=== PATIENT | male | born 1965 | race Caucasian/White ===

== ENCOUNTER 2019-12-17 10:16 | Outpatient (CLI) | payer OTHER, SELFPAY ==
--- NOTE | ~2019-12-17 | CT_ITS ---
EXAMINATION: CT abdomen pelvis w con DATE: 12/17/2019 10:58 INDICATION: Contusion of the abdominal wall TECHNIQUE: Computed tomography (CT) of the abdomen and pelvis was performed with 100 cc Omnipaque 350 intravenous contrast. Automated exposure control and iterative reconstruction technique were employe d. Exam dose: 1071.12 mGy-cm total exam DLP. COMPARISON: None. FINDINGS: Right lower lobe calcified pulmonary granuloma. No infiltrate or consolidation in the inclu ded lower lung zones. Normal heart size. Coronary artery calcifications. No pericardial or pleural effusion. The liver, gallbladder, bile ducts, spleen, pancreas and pancreatic duct are unremarkable. Indeterminate 1.9 cm mid anterior left renal hypoenhancing mass with mean density attenuation of 48 H ounsfield units. 3 cm exophytic posterior medial lower pole left renal mass with mean density measurement of 39 Hounsf ield units. An approximately 6 mm cortical cysts of the medial mid left kidney is noted. 10.7 mm upper pole right renal hypoenhancing lesion with mean density of 31.4 Hounsfield units 8 mm posterior upper pole cortical right renal hypoenhancing lesion with mean density 41 Hounsfield u nits. Probable 3 mm cortical cyst of the medial mid right kidney. Consider MRI of the kidneys for more definitive evaluation of the renal lesions. There is prostate enlargement and calcifications. There is an approximately 1 cm soft tissue mass pro jecting at the base of the urinary bladder. This may be prostate enlargement. Bladder neoplasm cannot be excluded. Further evaluation is recommended. There is diffuse moderate bladder wall thickening, likely due to prostate enlargement/bladder outlet obstruction. There is atherosclerotic calcification of the abdominal aorta and iliac and femoral arteries. There i s no abdominal aortic aneurysm. No intraperitoneal or retroperitoneal or pelvic mass lesion or adenop athy or ascites is evident. Normal appendix. No bowel obstruction, bowel wall thickening, pneumatosis or intraperitoneal free air . Very small fat-containing umbilical hernia. Diffuse idiopathic skeletal hyperostosis of the lower thoracic spine. No suspicious osteolytic or osteoblastic lesions are noted. IMPRESSION: Multiple bilateral indeterminate hypoenhancing renal lesions, some or all of which might be relatively high attenuation cyst(s). Solid renal mass lesion is not excluded. Consider MRI of the kidneys for more definitive evaluation Prostate enlargement versus bladder mass, base of the urinary bladder; further evaluation is recommen ded Reviewed, dictated and finalized at [facility]. Reviewed, dictated and finalized at location [facility]. IMPRESSION: Multiple bilateral indeterminate hypoenhancing renal lesions, some or all of which might be relatively high attenuation cyst(s). Solid renal mass lesion is not excluded. Consider MRI of the kidneys for more definitive evalua tion Prostate enlargement versus bladder mass, base of the urinary bladder; further evaluation is recommended
[2019-12-17 10:43] LABS: Estimated Glomerular Filt Rate > 60
== END 2019-12-17 10:17 | disposition home or self-care (01) ==
LOC: ANHIMG 10:20
PROVIDERS: PCP Family Medicine; Visit Provider Family Medicine
DX: S30.1XXS Contusion of abdominal wall, sequela (principal); K76.9 Liver disease, unspecified; R93.5 Abnormal findings on diagnostic imaging of other abdominal regions, including retroperitoneum
CPT/HCPCS: 36415; 74177; Q9967

== ENCOUNTER 2020-01-09 07:30 | Outpatient (CLI) | payer OTHER, SELFPAY ==
--- NOTE | ~2020-01-09 | MR_ITS ---
EXAMINATION: MR renal wo con DATE: 01/09/2020 09:32 INDICATION: Bilateral kidney masses. TECHNIQUE: Magnetic resonance imaging (MRI) of the abdomen was performed without intravenous contrast . Sequences included coronal T2-weighted FS FSE, coronal and axial FIESTA FS, coronal LAVA-flex, axia l LAVA, axial T2-weighted FSE, axial T1-weighted dual-echo FSPGR, axial STIR FSE, and axial DWI. COMPARISON: CT abdomen and pelvis 12/17/2019, lumbar spine 09/19/2012 FINDINGS: The liver and spleen are normal. There are gallstones in the gallbladder, which is normal in size. Th e pancreas and adrenal glands are normal. There are simple cysts in the kidneys measuring up to 11 mm on the right. There are 2.1 cm and 3.0 cm masses in left kidney that demonstrate heterogeneous signa l intensity. There are no dilated loops of bowel. There are no pathologically enlarged lymph nodes. T here is no free intraperitoneal fluid. IMPRESSION: 1. 2.1 cm and 3.0 cm masses in left kidney. These findings are most likely hemorrhagic cysts, but brian plasm cannot be excluded without postcontrast imaging. Abdomen CT or MRI without and with contrast is recommended. Reviewed, dictated and finalized at location [facility]. IMPRESSION: 1. 2.1 cm and 3.0 cm masses in left kidney. These findings are most likely hemo rrhagic cysts, but neoplasm cannot be excluded without postcontrast imaging. Ab domen CT or MRI without and with contrast is recommended.
--- NOTE | ~2020-01-09 | MR_ITS ---
EXAMINATION: MR thoracic spine wo con EXAM DATE: 01/09/2020 09:32 INDICATION: Mid back pain. TECHNIQUE: Multi-sequential, multiplanar MR images of the thoracic spine were obtained without contra st. Sagittal T1, T2, T2 fat saturation, axial T2 weighted images reviewed. There is no prior study for comparison. FINDINGS: At the T2-3 level the thoracic spinal cord is being flattened along the anterior aspect of the thecal sac to 3 mm in AP dimension versus normal 5 mm thickness below. No cord edema, this likely a chronic finding from a dural rent or tear. There is mixed signal intensity within the spinal canal including at this level as would be expected for flowing CSF, making mass effect from an posterior a rachnoid cyst unlikely. Spinal cord morphology is otherwise normal. There is no syringohydromyelia. There is mild to moderate mid thoracic disc disease and facet arthropathy without posterior protrusions or neural foraminal st enosis. Central canal patent. The vertebral bodies are aligned in the AP dimension. Paraspinal soft t issue is unremarkable. IMPRESSION: 1. Cord anterior course alteration, flattening at T2-3 level, most likely from dural rent/tear. 2. Mild to moderate thoracic spondylosis. No stenosis. Reviewed, dictated and finalized at location [facility].
== END 2020-01-09 07:31 | disposition home or self-care (01) ==
LOC: ANHIMG 07:32
PROVIDERS: PCP Family Medicine; Visit Provider Family Medicine
DX: N28.89 Other specified disorders of kidney and ureter (principal); M51.34 Other intervertebral disc degeneration, thoracic region; M47.894 Other spondylosis, thoracic region
CPT/HCPCS: 72146; 74181

== ENCOUNTER 2020-02-08 08:15 | Outpatient (CLI) | payer OTHER, SELFPAY ==
--- NOTE | ~2020-02-08 | MR_ITS ---
EXAMINATION: MR lumbar spine wo con DATE: 02/08/2020 09:10 INDICATION: Lumbago. TECHNIQUE: Magnetic resonance imaging (MRI) of the lumbar spine was performed without intravenous con trast. Sequences included sagittal T2-weighted FSE, sagittal T2-weighted FS FSE, sagittal T1-weighted FSE, and axial T2-weighted FSE. COMPARISON: Lumbar spine MRI 09/19/2012 FINDINGS: There is 10 degrees dextroscoliosis of lumbar spine. There are Schmorl's nodes at most leve ls. There is severely decreased disc height at L2-L3, mildly decreased disc height at L4-L5, and mode rately decreased disc height at L5-S1. There is a 3.0 cm cyst in left kidney. The following disc leve ls are specifically discussed: L1-L2: The disc does not extend beyond the endplate margin. There is mild bilateral facet joint osteo arthritis. There is no neural foraminal stenosis. There is no central canal stenosis. L2-L3: The disc is bulging and has an annular fissure. There is mild bilateral facet joint osteoarthr itis. There is mild right and moderate left neural foraminal stenosis. There is mild central canal st enosis. L3-L4: The disc is bulging and has an annular fissure. There is moderate right and mild left facet yisel int osteoarthritis. There is no neural foraminal stenosis. There is mild central canal stenosis. L4-L5: The disc is bulging and has an annular fissure. There is mild bilateral facet joint osteoarthr itis. There is mild right neural foraminal stenosis. There is no central canal stenosis. L5-S1: The disc is bulging. There is severe right and moderate left facet joint osteoarthritis. There is moderate right and mild left neural foraminal stenosis. There is mild central canal stenosis. IMPRESSION: 1. Severe lumbar spondylosis, worsened from 09/19/2012. 2. Lumbar dextroscoliosis. Reviewed, dictated and finalized at location [facility].
== END 2020-02-08 08:16 | disposition home or self-care (01) ==
PROVIDERS: PCP Family Medicine; Visit Provider Nurse Practitioner Family
DX: M47.896 Other spondylosis, lumbar region (principal)
CPT/HCPCS: 72148

== ENCOUNTER 2020-03-02 07:35 | Outpatient (CLI) | payer OTHER, SELFPAY ==
--- NOTE | ~2020-03-02 | MR_ITS ---
EXAMINATION: MR abdomen wo/w con DATE: 03/02/2020 08:57 INDICATION: Renal cyst. TECHNIQUE: Magnetic resonance imaging (MRI) of the abdomen was performed without and with 20 mL Multi Hugo intravenous contrast. Sequences included coronal T2-weighted FS FSE, coronal and axial FIESTA F S, coronal LAVA-flex, axial LAVA, axial T2-weighted FSE, axial T1-weighted dual-echo FSPGR, axial STI R FSE, and axial DWI. Postcontrast sequences included coronal LAVA-flex and a time course of axial LA VA. COMPARISON: Abdomen MRI 01/09/2020, CT abdomen and pelvis 12/17/2019 FINDINGS: The liver is normal. There are gallstones in the gallbladder, which is normal in size. The spleen, pa ncreas, and adrenal glands are normal. There are nonenhancing cysts in the kidneys measuring up to 2. 2 cm on the left. There is a nonenhancing 3.0 cm hemorrhagic cyst in left kidney. There are no dilate d loops of bowel. There are no pathologically enlarged lymph nodes. There is no free intraperitoneal fluid. IMPRESSION: 1. Benign cysts in the kidneys. Reviewed, dictated and finalized at location A.
[2020-03-02 08:15] LABS: Estimated Glomerular Filt Rate > 60
== END 2020-03-02 07:36 | disposition home or self-care (01) ==
LOC: ANHIMG 07:40
PROVIDERS: PCP Family Medicine; Visit Provider Urology
DX: N28.1 Cyst of kidney, acquired (principal)
CPT/HCPCS: 36415; 74183; A9577

== ENCOUNTER 2020-04-25 01:28 | Outpatient (CLI) | payer OTHER, SELFPAY ==
[2020-04-25 19:30] LABS: SARS-CoV-2 RNA PCR Negative
== END 2020-04-25 01:29 | disposition home or self-care (01) ==
LOC: ANHCOVIDDT 01:29
PROVIDERS: PCP Family Medicine; Visit Provider Internal Medicine Gastroenterology
DX: Z01.812 Encounter for preprocedural laboratory examination (principal); Z11.59 Encounter for screening for other viral diseases
CPT/HCPCS: 87635; C9803; U0003

== ENCOUNTER 2020-04-28 00:55 | Day surgery (SDC) | payer OTHER, SELFPAY ==
[2020-04-20 09:30] VITALS: BMI 33.8
--- NOTE | 2020-04-20 09:54 | PC.NURSE ---
PATIENT STATES HE WAS INSTRUCTED BY DR. KOWALSKI OFFICE TO HOLD PLAVIX AND NAPROXEN FOR FIVE DAYS PRIOR TO COLONOSCOPY.
[2020-04-28 08:01] VITALS: BP 151/100; PULSE 74; RESP 17; TEMP 36.4; O2SAT 98; BMI 32.2
[2020-04-28] MEDS: LACTATED RINGERS 1,000 ML 150 ML IV CONT (08:07)
[2020-04-28 08:18] LABS: Glucose Point of Care 168 (65-105)
--- NOTE | 2020-04-28 08:52 | WPDANESEPPF ---
Anes - Initial Pre Proc Eval Procedure: Operation Date: 04/28/20 09:15 Proposed Procedures p Screening Colonoscopy - Froylan Sinha MD Date/Time: 04/28/20 08:52 Surgeon: rFoylan Sinha MD Pre Op Diagnosis: Neoplasm Screening Patient Data Age: 55 Gender: M Height: 5 ft 11 in Weight: 104.8 kg Last Vital Signs Temp 97.5 F L 04/28/20 08:01 Pulse 74 04/28/20 08:01 Resp 17 04/28/20 08:01 BP 151/100 H 04/28/20 08:01 Pulse Ox 98 04/28/20 08:01 Allergies Allergy/AdvReac Type Severity Reaction Status Date / Time No Known Allergies Allergy Verified 04/28/20 08:18 Home Medications Medication Instructions Recorded Confirmed Type pravastatin 10 mg tablet 10 mg PO DAILY #90 tablet 08/16/19 04/28/20 Rx amlodipine 10 mg tablet 10 mg PO DAILY #90 tablet 08/19/19 04/28/20 Rx clonidine HCl 0.1 mg tablet 0.1 mg PO DAILY #90 tablet 08/23/19 04/28/20 Rx clopidogrel 75 mg tablet 75 mg PO DAILY #30 tablet 11/01/19 04/28/20 Rx metoprolol tartrate 100 mg tablet 100 mg PO Q12H #60 tablet 11/01/19 04/28/20 Rx potassium chloride 20 mEq 20 meq PO DAILY #30 tablet 11/01/19 04/28/20 Rx tablet,extended release(part/cryst) aspirin 81 mg tablet,delayed 81 mg PO DAILY 11/11/19 04/28/20 History release empagliflozin 25 mg tablet 25 mg PO DAILY #90 tablet 12/17/19 04/28/20 Rx valsartan 320 1 tablet PO DAILY #90 tablet 01/14/20 04/28/20 Rx mg-hydrochlorothiazide 25 mg tablet metformin 1,000 mg tablet 1,000 mg PO BID #180 tablet 02/03/20 04/28/20 Rx naproxen sodium 550 mg tablet 550 mg PO BID PRN #180 tablet 02/03/20 04/28/20 Rx blood sugar diagnostic #300 each 04/13/20 Rx ckzyvaji-vdu-djelf-vit K-lycop 1 tablet PO DAILY 04/20/20 04/28/20 History [Men's 50 Plus Multivitamin] Laboratory Tests 04/28/20 08:14 POC Capillary Glucose 168 mg/dl H mg/dl (65-105) Patient hx anesthesia problems: none Family hx anesthesia problems: none [facility] Past Medical History Medical History (Updated 03/20/20 @ 11:09 by Froylan Sinha MD) Bilateral renal masses Bladder wall thickening BPH (benign prostatic hyperplasia) Degenerative lumbar disc Ganglion, right hand History of CVA (cerebrovascular accident) Screening for colorectal cancer Thoracic degenerative disc disease Traumatic ecchymosis of abdominal wall Social History Social History Smoking status: Never smoker Alcohol intake: current Anes - Eval Final PreProcedure Day of Procedure 04/28/20 08:52 Patient weight: obese Heart: regular rate and rhythm Lungs: clear to auscultation Airway: Mallampati scale class III Last oral intake: >/= 8 hours ASA classification: III Emergent: no Anesthetic plan: proceed Anesthesia type and monitoring: general GIVS and standard monitoring Informed Consent: The patient's anesthetic plan and its attendant risks and benefits were discussed with the patient/family/POA. Questions were solicited and answers provided to the satisfaction of the patient/family/POA.
--- NOTE | 2020-04-28 09:21 | PM.HPGS ---
History of Present Illness History of Present Illness Consent: Risks, benefits, and alternatives have been discussed and questions answered. Patient agrees to proceed with procedure. Chief complaint: Neoplasm Screening Narrative: Erlin Sifuentes Jr. is a 55 year old male here for first screening colonoscopy Review of Systems Constitutional: Constitutional: Denies headache(s) and Denies weakness Eyes: Eyes: Denies blurry vision ENT: Reports Normal hearing present, Denies headache(s) and Denies neck pain Cardiovascular: Cardiovascular: Denies chest pain and Denies dyspnea Respiratory: Respiratory: Denies dyspnea Gastrointestinal: Gastrointestinal: Reports no additional gastrointestinal complaints Genitourinary: Genitourinary: Denies dysuria Musculoskeletal: Musculoskeletal: Denies neck pain Integumentary/Breasts: Skin/Breast: Denies dry skin Neurologic: Reports Normal hearing present, Denies headache(s) and Denies weakness Psychiatric: Psychiatric: Denies anxiety Endocrine: Endocrine: Denies change in body appearance Hematologic/Lymphatic: Hematologic/Lymphatic: Denies easy bleeding Allergic/Immunologic: Allergic/Immunologic: Denies urticaria PMF Past Medical History Medical History (Updated 03/20/20 @ 11:09 by Froylan Sinha MD) Bilateral renal masses Bladder wall thickening BPH (benign prostatic hyperplasia) Degenerative lumbar disc Ganglion, right hand History of CVA (cerebrovascular accident) Screening for colorectal cancer Thoracic degenerative disc disease Traumatic ecchymosis of abdominal wall Social History Social History Smoking status: Never smoker Alcohol intake: current Meds Home Medications and Allergies Home Medications Medication Instructions Recorded Confirmed Type pravastatin 10 mg tablet 10 mg PO DAILY #90 tablet 08/16/19 04/28/20 Rx amlodipine 10 mg tablet 10 mg PO DAILY #90 tablet 08/19/19 04/28/20 Rx clonidine HCl 0.1 mg tablet 0.1 mg PO DAILY #90 tablet 08/23/19 04/28/20 Rx clopidogrel 75 mg tablet 75 mg PO DAILY #30 tablet 11/01/19 04/28/20 Rx metoprolol tartrate 100 mg tablet 100 mg PO Q12H #60 tablet 11/01/19 04/28/20 Rx potassium chloride 20 mEq 20 meq PO DAILY #30 tablet 11/01/19 04/28/20 Rx tablet,extended release(part/cryst) aspirin 81 mg tablet,delayed 81 mg PO DAILY 11/11/19 04/28/20 History release empagliflozin 25 mg tablet 25 mg PO DAILY #90 tablet 12/17/19 04/28/20 Rx valsartan 320 1 tablet PO DAILY #90 tablet 01/14/20 04/28/20 Rx mg-hydrochlorothiazide 25 mg tablet metformin 1,000 mg tablet 1,000 mg PO BID #180 tablet 02/03/20 04/28/20 Rx naproxen sodium 550 mg tablet 550 mg PO BID PRN #180 tablet 02/03/20 04/28/20 Rx blood sugar diagnostic #300 each 04/13/20 Rx nscjxbqu-els-zeiax-vit K-lycop 1 tablet PO DAILY 04/20/20 04/28/20 History [Men's 50 Plus Multivitamin] Allergies Allergy/AdvReac Type Severity Reaction Status Date / Time No Known Allergies Allergy Verified 04/28/20 08:18 Vital Signs Vital Signs - 24 hr 04/28/20 08:01 Temperature 97.5 F L Pulse Rate 74 Respiratory Rate 17 Blood Pressure 151/100 H Pulse Oximetry 98 Exam Const: General: comfortable and no acute distress HENMT: General nose exam: Normal nares present Eyes: General: appearance normal, both eyes and all related structures Neck: Neck: no JVD Resp: Auscultation: clear to auscultation bilaterally Cardio: Rate: regular rate Rhythm: regular rhythm GI: Inspection: non-distended GI Palp: Yes Soft to palpation Skin: General skin exam: normal color Neuro: General: gait normal Speech: normal speech Extrem: General: normal to inspection Psych: Mental Status: mental status grossly normal Assessment and Plan Assessment and plan (1) Screening for colorectal cancer: Code(s): Z12.11 - Encounter for screening for malignant neoplasm of colon; Z12.12 - Encounte
[2020-04-28 09:58] VITALS: BP 108/74; PULSE 72; RESP 18; O2SAT 97
[2020-04-28 10:08] VITALS: BP 116/72; PULSE 68; RESP 18; O2SAT 98
[2020-04-28 10:18] VITALS: BP 123/81; PULSE 65; RESP 18; O2SAT 98
== END 2020-04-28 10:31 | disposition home or self-care (01) ==
PROVIDERS: PCP Family Medicine; Visit Provider Internal Medicine Gastroenterology
PROC: 0DJD8ZZ Inspection of Lower Intestinal Tract, Via Natural or Artificial Opening Endoscopic (ICD-10-PCS; CPT 45378; principal; 2020-04-28 09:15)
DX: Z12.11 Encounter for screening for malignant neoplasm of colon (principal); D12.3 Benign neoplasm of transverse colon; K64.8 Other hemorrhoids; Z86.73 Personal history of transient ischemic attack (TIA), and cerebral infarction without residual deficits; Z79.82 Long term (current) use of aspirin; Z79.899 Other long term (current) drug therapy
CPT/HCPCS: 45385; 88305; J2001; J2704; J7120

== ENCOUNTER 2021-02-01 09:52 | Outpatient (CLI) | payer OTHER, SELFPAY ==
--- NOTE | ~2021-02-01 | US_ITS ---
EXAMINATION: US abdomen complete DATE: 02/01/2021 10:33 INDICATION: Calculus of gallbladder without cholecystitis without obstruction. TECHNIQUE: Multiple grayscale and Doppler ultrasound images of the abdomen were obtained. COMPARISON: Abdomen MRI 03/02/2020 FINDINGS: The pancreas is obscured by bowel gas. The liver is normal without focal lesion. There is n ormal flow in main portal vein. The gallbladder is distended and contains gallstones. No gallbladder wall thickening or sonographic Michael sign. The common duct is normal and measures 4 mm. The kidneys are normal in size. There is a 3.2 cm cyst in left kidney. The spleen is normal in size. Abdominal ao rta is normal in caliber. The inferior vena cava is normal. IMPRESSION: 1. Cholelithiasis. Gallbladder distention may be secondary to fasting. No gallbladder wall thickening or sonographic Michael sign to suggest acute cholecystitis. Reviewed, dictated and finalized at location A. IMPRESSION: 1. Cholelithiasis. Gallbladder distention may be secondary to fasting. No gallb ladder wall thickening or sonographic Michael sign to suggest acute cholecystiti s.
[2021-02-01 10:38] LABS: Basophils Absolute Auto 0.1 K/mm3 (0.0-0.1); Basophils Percent Auto 0.8 % (0.2-1.2); Eosinophils Absolute Auto 0.2 K/mm3 (0-0.3); Eosinophils Percent Auto 2.9 % (0-4.4); Hematocrit 44.4 % (42.0-52.0); Hemoglobin 14.7 g/dL (14.0-18.0); Immature Granulocyte Absolute 0.02 K/mm3 (0.00-0.031); Immature Granulocyte Percent A 0.3 % (0-0.5); Lymphocytes Percent Auto 38.7 % (18.3-44.2); Mean Corpuscular HGB Conc 33.1 g/dl (32-36); Mean Corpuscular Hemoglobin 28.4 pg (26-34); Mean Corpuscular Volume 85.9 fl (80-100); Mean Platelet Volume 9.2 fl (7.4-10.4); Monocytes Absolute Auto 0.5 K/mm3 (0.1-0.6); Monocytes Percent Auto 9.1 % (2.6-8.5); Neutrophils Absolute Auto 2.9 K/mm3 (1.3-6.7); Neutrophils Percent Auto 48.2 % (45.5-73.1); Platelet Count Result 221 k/mm3 (150-375); Red Blood Count 5.17 M/mm3 (4.6-6.20); Red Cell Distribution Width 12.2 % (11.5-14.5); White Blood Count 5.9 K/mm3 (4.5-10.0)
[2021-02-01 10:49] LABS: Alanine Aminotransferase 42 U/L (4-50); Alkaline Phosphatase 82 U/L (38-126); Anion Gap 8 mmol/L (8-16); Aspartate Amino Transferase 31 U/L (17-59); Bilirubin,Total 0.3 mg/dL (0.2-1.3); Blood Urea Nitrogen 13 mg/dL (9-20); Carbon Dioxide 31 mmol/L (22-30); Chloride 101 mmol/L (98-107); Estimated Glomerular Filt Rate > 60; Glucose 140 mg/dL (75-110); Potassium 4.1 mmol/L (3.4-5.0); Sodium 140 mmol/L (137-145)
== END 2021-02-01 09:53 | disposition home or self-care (01) ==
LOC: ANHIMG 09:53
PROVIDERS: PCP Family Medicine; Visit Provider Family Medicine
DX: K80.20 Calculus of gallbladder without cholecystitis without obstruction (principal); K58.0 Irritable bowel syndrome with diarrhea
CPT/HCPCS: 36415; 76700; 80053; 85025

== ENCOUNTER 2021-09-01 09:26 | Outpatient (CLI) | payer OTHER, SELFPAY ==
--- NOTE | 2021-09-01 09:34 | ECG_ITS ---
Measurements Intervals [place] Rate: 64 P: 48 WV: 186 QRS: 14 QRSD: 96 T: 3 QT: 425 QTc: 441 Interpretive Statements SINUS RHYTHM BORDERLINE ST-T WAVE ABNORMALITY- INFERIOR LEADS BASELINE ARTIFACT- I, II, III BORDERLINE ECG Electronically Signed On 09-01-2021 9:59:09 [employer] by Timbo Larson D.O.
[2021-09-01 10:28] LABS: Anion Gap 11 mmol/L (8-16); Blood Urea Nitrogen 11 mg/dL (9-20); Calcium 8.7 mg/dL (8.4-10.2); Carbon Dioxide 26 mmol/L (22-30); Chloride 101 mmol/L (98-107); Estimated Glomerular Filt Rate > 60; Glucose 228 mg/dL (65-110); Potassium 3.6 mmol/L (3.4-5.0); Sodium 138 mmol/L (137-145)
== END 2021-09-01 09:27 | disposition home or self-care (01) ==
LOC: ANHSURGERY 09:30
PROVIDERS: Anesthesiology; PCP Family Medicine; Visit Provider Otolaryngology
DX: E11.9 Type 2 diabetes mellitus without complications (principal); E78.5 Hyperlipidemia, unspecified; Z79.899 Other long term (current) drug therapy; I10 Essential (primary) hypertension; Z01.818 Encounter for other preprocedural examination; R94.31 Abnormal electrocardiogram [ECG] [EKG]
CPT/HCPCS: 36415; 80048; 93005

== ENCOUNTER 2021-09-07 00:12 | Day surgery (SDC) | payer OTHER, SELFPAY ==
[2021-08-31 12:23] VITALS: BMI 33.5
--- NOTE | 2021-08-31 12:39 | PC.NURSE ---
Report to the Outpatient Waiting Room, entrance under the green pavilion located off [facility], at time 7:45 on date 09/07/21. OR Time: 9:45. - You will be asked a series of questions to screen for COVID 19 for your protection. - A mask is required within the hospital. - No visitors are allowed at this time. Patient visitors will be guided where to wait when not with patient. Preoperative COVID Testing Requirements: TO BRING COPY OF COVID CARD No COVID Test needed if: (proof is required; if not received patient will have Rapid Test prior to entry) - Patient has received COVID Vaccine at least 14 days prior to procedure date or - Patient has positive COVID test result within last 90 days of surgery date. COVID Test needed if above criteria is not met If not COVID vaccinated a COVID test must be conducted within 72 hours of surgery and patient is asked to isolate self from time of testing until procedure. You will go to the [facility] for your COVID testing. The [facility] is located at the corner of [address] [facility]. You will only be called if COVID results are positive and your surgeon may reschedule your elective surgery date. Patients may have clear liquids (water, carbonated beverages, clear teas, apple juice) until 3 hours prior to surgery (6:45) with a maximum of 20 ounces. - No food from midnight until time of surgery Take the following medications with a SIP of water the morning of surgery: AMLODIPINE, CARVEDILOL, CLONIDINE Medications to discontinue per physician: VITAMINS/SUPPLEMENTS Date to take last dose: 09/03/21 STOP ASPIRIN AND NAPROXEN PER DR. RIOJAS (LAST DOSE 09/01/21) Please no make-up, nail kyrgyz, hairspray, perfume, deodorant, or body powder the day of surgery. No jewelry (including any body piercings) or valuables the day of surgery, leave them at home. Please take a shower or bath the night before, or the morning of, surgery with an antibacterial soap. Wear comfortable, loose fitting clothing. - Jewelry must be removed prior to entering the operating room. Rings and piercings that are not removed may be cut off. - The hospital will not accept responsibility for valuables. - Please leave all valuables, including medications, at home the day of surgery. If you are going home after surgery, a licensed residential driver must drive you home. - NO public transportation without another adult. - We recommend that an adult stay with you for 24 hours following discharge. - We also recommend that you do not drive, make important decision, drink alcoholic beverages, or take any drugs that were not prescribed by your health care provider for at least 24 hours after your discharge time. Follow any additional instructions given to you from your surgeon. Telephone instructions given to WINDY QUIROZ and asked if any additional questions and then verbalized understanding. Patient advised to call surgeon office or pre surgery nurse liaison [phone] if any additional questions.
--- NOTE | 2021-09-06 06:33 | PM.HPGS ---
History of Present Illness History of Present Illness Consent: Risks, benefits, and alternatives have been discussed and questions answered. Patient agrees to proceed with procedure. Chief complaint: tongue lesion Narrative: Erlin Sifuentes Jr. is a 56 year old male with a lesion of the tongue that is getting larger it is about 2.5 cm at this point Review of Systems Review of Systems: All systems reviewed & are unremarkable except as noted in HPI and below PMFSH Past Medical History Medical History Adenomatous colon polyp Bilateral renal masses Bladder wall thickening BMI 32.0-32.9,adult BMI 33.0-33.9,adult BPH (benign prostatic hyperplasia) Change in stool caliber Cholelithiasis Degenerative lumbar disc Diabetes mellitus type 2, noninsulin dependent Diabetes type 2, controlled Essential hypertension Fecal urgency Ganglion, right hand History of CVA (cerebrovascular accident) Irritable bowel syndrome with diarrhea Screening for colorectal cancer Screening for prostate cancer Thoracic degenerative disc disease Traumatic ecchymosis of abdominal wall Family History Family History Father Hypertension Family history of diabetes mellitus in first degree relative Family history of lung cancer Family history of coronary artery disease Family history of cardiovascular disease Mother Hypertension Family history of malignant neoplasm Other Cerebrovascular accident Diabetes mellitus Social History Social History Smoking status: Never smoker Alcohol intake: current Substance use: never Substance use type: does not use Living arrangements: with family Spiritual care concerns: No Meds Home Medications and Allergies Home Medications Medication Instructions Recorded Confirmed Type aspirin 81 mg tablet,delayed 81 mg PO DAILY 11/11/19 08/31/21 History release pxjxmhao-bng-mgagh-vit K-lycop 1 tablet PO DAILY 04/20/20 08/31/21 History [Men's 50 Plus Multivitamin] diphenoxylate-atropine 2.5 1 tablet PO TID PRN #60 tablet 10/01/20 08/31/21 Rx mg-0.025 mg tablet amlodipine 10 mg tablet 10 mg PO DAILY #90 tablet 10/26/20 08/31/21 Rx clonidine HCl 0.1 mg tablet 0.1 mg PO DAILY #90 tablet 10/26/20 08/31/21 Rx valsartan 320 1 tablet PO DAILY #90 tablet 10/26/20 08/31/21 Rx mg-hydrochlorothiazide 25 mg tablet potassium chloride 20 mEq See Rx Instructions .ROUTE 04/20/21 08/31/21 Rx tablet,extended release(part/cryst) .COMPLEX #90 tablet empagliflozin 25 mg tablet 25 mg PO DAILY #90 tablet 06/15/21 08/31/21 Rx carvedilol 12.5 mg tablet See Rx Instructions PO Q12H #360 07/20/21 08/31/21 Rx tablet metformin 500 mg tablet,extended 2,000 mg PO DAILY #360 tablet 07/20/21 08/31/21 Rx release 24 hr blood sugar diagnostic See Rx Instructions .ROUTE 07/29/21 Rx .COMPLEX #300 strip naproxen sodium 550 mg tablet See Rx Instructions .ROUTE 07/29/21 08/31/21 Rx .COMPLEX #180 tablet pravastatin 10 mg tablet See Rx Instructions .ROUTE 07/29/21 08/31/21 Rx .COMPLEX #90 tablet Allergies Allergy/AdvReac Type Severity Reaction Status Date / Time No Known Allergies Allergy Verified 08/31/21 12:17 Exam Narrative: chest clear heart without murmurs abdomen soft extremities -2.5 cm left-sided tongue lesion Assessment and Plan Additional Plan plan removal tongue lesion left
--- NOTE | 2021-09-06 13:51 | WPDANESEPPF ---
Anes - Initial Pre Proc Eval Procedure: Operation Date: 09/07/21 09:45 Proposed Procedures p Excision Anterior Tongue Lesion - Cristobal Spaulding MD Date/Time: 09/06/21 13:51 Surgeon: Cristobal Spaulding MD Pre Op Diagnosis: tongue lesion Patient Data Age: 56 Gender: M Height: 1.8 m Weight: 108.86 kg Allergies Allergy/AdvReac Type Severity Reaction Status Date / Time No Known Allergies Allergy Verified 09/07/21 08:43 Home Medications Medication Instructions Recorded Confirmed Type aspirin 81 mg tablet,delayed 81 mg PO DAILY 11/11/19 09/07/21 History release znbwjxhb-tsz-onbhe-vit K-lycop 1 tablet PO DAILY 04/20/20 09/07/21 History [Men's 50 Plus Multivitamin] diphenoxylate-atropine 2.5 1 tablet PO TID PRN #60 tablet 10/01/20 08/31/21 Rx mg-0.025 mg tablet amlodipine 10 mg tablet 10 mg PO DAILY #90 tablet 10/26/20 09/07/21 Rx clonidine HCl 0.1 mg tablet 0.1 mg PO DAILY #90 tablet 10/26/20 09/07/21 Rx valsartan 320 1 tablet PO DAILY #90 tablet 10/26/20 09/07/21 Rx mg-hydrochlorothiazide 25 mg tablet empagliflozin 25 mg tablet 25 mg PO DAILY #90 tablet 06/15/21 09/07/21 Rx metformin 500 mg tablet,extended 2,000 mg PO DAILY #360 tablet 07/20/21 09/07/21 Rx release 24 hr blood sugar diagnostic See Rx Instructions .ROUTE 07/29/21 Rx .COMPLEX #300 strip carvedilol 25 mg PO Q12H 09/07/21 09/07/21 History naproxen sodium 550 mg PO DAILY 09/07/21 09/07/21 History potassium chloride [Klor-Con M20] 20 meq PO DAILY 09/07/21 09/07/21 History pravastatin 10 mg PO DAILY 09/07/21 09/07/21 History Patient hx anesthesia problems: none Family hx anesthesia problems: none Results Review: All pre-operative results and documents have been reviewed as part of the pre-operative evaluation. [facility] Past Medical History Medical History Adenomatous colon polyp Bilateral renal masses Bladder wall thickening BMI 32.0-32.9,adult BMI 33.0-33.9,adult BPH (benign prostatic hyperplasia) Change in stool caliber Cholelithiasis Degenerative lumbar disc Diabetes mellitus type 2, noninsulin dependent Diabetes type 2, controlled Essential hypertension Fecal urgency Ganglion, right hand History of CVA (cerebrovascular accident) Irritable bowel syndrome with diarrhea Screening for colorectal cancer Screening for prostate cancer Thoracic degenerative disc disease Traumatic ecchymosis of abdominal wall Family History Family History Father Hypertension Family history of diabetes mellitus in first degree relative Family history of lung cancer Family history of coronary artery disease Family history of cardiovascular disease Mother Hypertension Family history of malignant neoplasm Other Cerebrovascular accident Diabetes mellitus Social History Social History Smoking status: Never smoker Alcohol intake: current Substance use: never Substance use type: does not use Living arrangements: with family Spiritual care concerns: No Anes - Eval Final PreProcedure Day of Procedure 09/06/21 13:51 Patient weight: obese Heart: regular rate and rhythm Lungs: clear to auscultation and normal air movement Airway: Mallampati scale class II Neurological: alert and oriented Last oral intake: >/= 8 hours ASA classification: III Emergent: no Anesthetic plan: proceed Anesthesia type and monitoring: general ETT and standard monitoring Results Review: All pre-operative results and documents have been reviewed as part of the pre-operative evaluation. Informed Consent: The patient's anesthetic plan and its attendant risks and benefits were discussed with the patient/family/POA. Questions were solicited and answers provided to the satisfaction of the patient/family/POA.
[2021-09-07] VITALS (7 sets, daily range): BP systolic 93–155; BP diastolic 55–96; PULSE 71–92; RESP 14–20; TEMP 36.2–36.3; O2SAT 92–100
--- NOTE | 2021-09-07 05:11 | WPDHPUPDATE1 ---
History and Physical Update Update Date/Time: 09/07/21 05:11 History and Physical has been reviewed, including an updated exam of the patient. There are NO changes in the patient's condition. Risks, benefits, and alternatives have been discussed and questions answered. Patient agrees to proceed with procedure.
[2021-09-07] MEDS: LACTATED RINGERS 1,000 ML 30 ML IV CONT ×2 (08:50→10:09)
[2021-09-07 09:01] LABS: Glucose Point of Care 159 mg/dl (65-105)
--- NOTE | 2021-09-07 10:07 | W.PM.PROC2 ---
Procedure Note - Detailed Date of Procedure 09/07/21 Pre-op Diagnosis tongue lesion Post-op Diagnosis same Procedure Performed Excision 3 cm lateral border of tongue lesion Surgeon Cristobal Spaulding MD Description of Procedure Patient was induced general anesthesia the tongue was grasped retracted anteriorly a 3 cm lesion was elliptically excised with electrocautery at 15 hemostasis was obtained electrocautery and then closed with 3-0 and 2-0 Vicryl sent for frozen section examination
[2021-09-07 10:16] LABS: Glucose Point of Care 198 mg/dl (65-105)
[2021-09-07] MEDS: fentaNYL CITRATE INJ (*CRX) 100 MCG/2 ML VIAL 25 MCG IV PUSH ×2 (10:37→10:46)
--- NOTE | 2021-09-07 10:51 | W.PM.PROC2 ---
Procedure Note - Detailed Date of Procedure 09/07/21 Pre-op Diagnosis tongue lesion Post-op Diagnosis same Surgeon Cristobal Spaulding MD
[2021-09-07] MEDS: oxyCODONE HCL (*CRX) 5 MG TAB IR PO (11:40)
== END 2021-09-07 12:00 | disposition home or self-care (01) ==
PROVIDERS: PCP Family Medicine; Visit Provider Otolaryngology
PROC: (CPT 41112; principal; 2021-09-07 09:45)
DX: C02.1 Malignant neoplasm of border of tongue (principal); E11.9 Type 2 diabetes mellitus without complications; I10 Essential (primary) hypertension; N40.0 Benign prostatic hyperplasia without lower urinary tract symptoms; Z86.73 Personal history of transient ischemic attack (TIA), and cerebral infarction without residual deficits; K58.0 Irritable bowel syndrome with diarrhea; E66.9 Obesity, unspecified; Z68.32 Body mass index [BMI] 32.0-32.9, adult; Z79.82 Long term (current) use of aspirin; Z79.84 Long term (current) use of oral hypoglycemic drugs
CPT/HCPCS: 41112; 36415; 80048; 82948; 88305; 88331; 93005; A9270; J0330; J1100; J2405; J2704; J3010; J7120

== ENCOUNTER 2021-09-13 22:48 | Emergency (ER) | payer OTHER, SELFPAY ==
[2021-09-13 22:50] VITALS: BP 152/89; PULSE 87; RESP 16; TEMP 36.3; O2SAT 100
--- NOTE | 2021-09-13 23:57 | PC.NURSE ---
Pt reported to intake nurse and said that it has stopped bleeding and i have an appointment in the morning, so i am going to go ahead and leave.
--- NOTE | 2021-09-13 23:59 | PC.NURSE ---
pt back to intake desk. Pt reports as i started walking out the door, i spit more blood up, so i am going to go ahead and stay now.
[2021-09-14] MEDS: CELLULOSE OXIDIZED 2 x 14 INCH 1 PKT XX (00:46)
--- NOTE | 2021-09-14 00:51 | ED.DENTAL ---
HPI - Dental/Oral General Chief complaint: Dental/Oral Stated complaint: Bleeding to left side of tongue post biopsy Time Seen by Provider: 09/14/21 00:32 Source: patient Mode of arrival: ambulatory Limitations: no limitations History of Present Illness HPI Narrative: 56-year-old with a history of CVA had a biopsy a week ago here with the complaints of bleeding from the biopsy site. Patient states that he initially had quite a bit of blood however by the time he came to the ER it has much subsided. He denies biting into it. Scheduled to see Dr. Spaulding in the morning Related Data Home Medications Medication Instructions Recorded Confirmed aspirin 81 mg tablet,delayed 81 mg PO DAILY 11/11/19 09/13/21 release Men's 50 Plus Multivitamin 1 tablet PO DAILY 04/20/20 09/13/21 carvedilol 25 mg PO Q12H 09/07/21 09/13/21 naproxen sodium 550 mg PO DAILY 09/07/21 09/13/21 potassium chloride [Klor-Con M20] 20 meq PO DAILY 09/07/21 09/13/21 pravastatin 10 mg PO DAILY 09/07/21 09/13/21 Allergies Allergy/AdvReac Type Severity Reaction Status Date / Time No Known Allergies Allergy Verified 09/13/21 22:53 Review of Systems Review of Systems: All systems reviewed & are unremarkable except as noted in HPI and below Constitutional: Constitutional: Reports no additional constitutional complaints Eyes: Eyes: Reports no additional eye complaints ENT: Reports as per HPI Cardiovascular: Cardiovascular: Reports no additional cardiovascular complaints Respiratory: Respiratory: Reports no additional respiratory complaints Gastrointestinal: Gastrointestinal: Reports no additional gastrointestinal complaints [facility] Past Medical History Medical History Adenomatous colon polyp Bilateral renal masses Bladder wall thickening BMI 32.0-32.9,adult BMI 33.0-33.9,adult BPH (benign prostatic hyperplasia) Change in stool caliber Cholelithiasis Degenerative lumbar disc Diabetes mellitus type 2, noninsulin dependent Diabetes type 2, controlled Essential hypertension Fecal urgency Ganglion, right hand History of CVA (cerebrovascular accident) Irritable bowel syndrome with diarrhea Screening for colorectal cancer Screening for prostate cancer Squamous cell cancer of tongue Thoracic degenerative disc disease Traumatic ecchymosis of abdominal wall Family History Family History Father Hypertension Family history of diabetes mellitus in first degree relative Family history of lung cancer Family history of coronary artery disease Family history of cardiovascular disease Mother Hypertension Family history of malignant neoplasm Other Cerebrovascular accident Diabetes mellitus Social History Social History Smoking status: Never smoker Alcohol intake: current Substance use: never Substance use type: does not use Spiritual care concerns: No Exam Narrative: GENERAL: Well-appearing, well-nourished, and in no acute distress. HEAD: Normocephalic, atraumatic. EYES: PERRLA and EOMI. ENT: Nares clear, no rhinorrhea or epistaxis. Mucous membranes moist. open area on the tongue left side ,no active bleeding at this time NECK: Supple. CHEST: Clear to auscultation. No respiratory distress. HEART: Regular rate and rhythm. No murmur heard. Normal peripheral pulses. EXTREMITIES: Normal range of motion. No edema. SKIN: Warm, dry, no rash. NEURO: No focal deficits. Alert and oriented x3. PSYCH: Normal mood and affect. Course Course Emergency Course: Applied Surgicel on the wound. Advised him to keep it as long as he can tolerate it. Follow-up with the surgeon tomorrow as scheduled as Vital Signs Vital signs: Vital Signs Temperature 36.3 C L 09/13/21 22:50 Pulse Rate 87 09/13/21 22:50 Respiratory Rate 16 09/13/21 22:50 Blood Pressure 152/89 H 09/13/21
[2021-09-14 01:31] VITALS: BP 113/83; PULSE 79; RESP 16; O2SAT 98
== END 2021-09-14 01:32 | disposition home or self-care (01) ==
PROVIDERS: Emergency Provider Family Medicine; PCP Family Medicine
DX: K91.840 Postprocedural hemorrhage of a digestive system organ or structure following a digestive system procedure (principal); E11.9 Type 2 diabetes mellitus without complications; I10 Essential (primary) hypertension; N40.0 Benign prostatic hyperplasia without lower urinary tract symptoms; K58.0 Irritable bowel syndrome with diarrhea; Z86.73 Personal history of transient ischemic attack (TIA), and cerebral infarction without residual deficits; Z86.010 Personal history of colon polyps; Z79.82 Long term (current) use of aspirin; Z79.84 Long term (current) use of oral hypoglycemic drugs
CPT/HCPCS: 99282

== ENCOUNTER 2021-12-01 09:27 | Outpatient (CLI) | payer OTHER, SELFPAY ==
--- NOTE | ~2021-12-01 | NM_ITS ---
EXAMINATION: NM hepatobiliary wo pharm DATE: 12/01/2021 12:27 INDICATION: Cholelithiasis without acute cholecystitis. COMPARISON: Ultrasound dated 02/01/21 TECHNIQUE: 4.8 mCi Tc-99m mebrofenin (Choletec) was administered intravenously. Scintigraphic images of the abdomen were obtained for one hour. At the 1 hour time point, the patient drank 8 oz Ensure, and imaging was continued for 60 minutes. Gallbladder ejection fraction was calculated by the technol ogkodi. FINDINGS: There is normal clearance of radiotracer from the blood pool. There is homogeneous tracer u ptake by the liver. Activity progresses to the bowel and gallbladder. The gallbladder ejection fract ion (GBEF) is 54%. Note that with this technique, normal GBEF >= 33%. IMPRESSION: 1. Normal hepatobiliary scan. Reviewed, dictated and finalized at location B.
== END 2021-12-01 09:28 | disposition home or self-care (01) ==
PROVIDERS: PCP Family Medicine; Visit Provider Family Medicine
DX: K80.20 Calculus of gallbladder without cholecystitis without obstruction (principal)
CPT/HCPCS: 78226; A9537

== ENCOUNTER 2025-01-23 03:02 | Day surgery (SDC) | payer OTHER, SELFPAY ==
[2025-01-14 14:31] VITALS: BMI 32.8
--- OUTSIDE RECORDS SUMMARY | 2025-01-23 03:04 | XMS_ITS | Clinical Summary ---
Author Organization [facility] Address [address] [place] [address] Care Team Providers Care Wireworker Name Role Phone Armaan Meeks MD Primary Care Provider [phone] Source Comments [facility],non-owned Affiliates and Associated Physician Practices is amultiple site organization consisting of ambulatory clinics and hospital sitesin [place], [place], [place] and [place]. This disclosure is being madepursuant to the Care Everywhere program and may not contain all information available regarding this patient. Last updated 18.[facility] Allergies No known active allergies Medications * Be aware that medications may not be up to date on this document. Alwaysverify current medications with the patient. amLODIPine (NORVASC) 10 MG tablet Take 1 (one) tablet by mouth once daily 1 Active carvedilol (COREG) 12.5 MG tablet Take 1 (one) tablet by mouth 2 times daily with morning and evening meal 1 Active JARDIANCE 25 MG tablet Take 1 (one) tablet by mouth once daily 2 Active ONETOUCH ULTRA test strip Use 1 (one) strip once 1 Active metFORMIN ER 24hr (GLUCOPHAGE XR) 500 MG tablet 1 (one) tablet 2 times daily 1 Active naproxen sodium (ANAPROX DS) 550 MG tablet Take 1 (one) tablet by mouth once daily 1 Active KLOR-CON M20 20 MEQ tablet Take 1 (one) tablet by mouth once daily 1 Active pravastatin (PRAVACHOL) 10 MG tablet Take 1 (one) tablet by mouth once daily 1 Active valsartan-hydr oCHLOROthiazid e (DIOVAN HCT) 320-25 MG tablet Take 1 (one) tablet by mouth once daily 1 Active aspirin (ASPIRIN) 81 MG chew tablet Take 1 (one) tablet by mouth once daily Active cloNIDine (CATAPRES) 0.1 MG tablet Take 1 (one) tablet by mouth once daily 2 Active amitriptyline (Elavil) 50 MG tablet Take 1 (one) tablet by mouth at bedtime Active Mounjaro 5 MG/0.5ML injection Inject 5 (five) mg subcutaneously every 7 days 4 Active oxyCODONE, immediate release, (Roxicodone) 5 MG tabletIndicati ons:tonsil biopsy Take 1 (one) tablet by mouth every 6 hours as needed for Pain Reasons: tonsil biopsy 12 tablet 5 Active Active Problems Problem Noted Date Diagnosed Date Tongue cancer 09/24/2021 Encounters Date Type Department Care Team Description 11/12/2024 7:19 AM CDT Anesthesia Event [facility] [address] [place] [id number] Reagan Vann MD Hunsaker, Madelyn, MD 11/12/2024 7:05 AM CDT - 11/12/2024 8:50 AM CDT Surgery [facility] [address] [place] [phone] Mauro Eugene MD Direct laryngoscopy 11/12/2024 5:42 AM CDT - 11/12/2024 10:10 AM CDT Hospital Encounter [facility] [address] [place] [phone] aMuro Eugene MD Surgery General Discharge Disposition: Home or Self Care 11/12/2024 Travel 11/04/2024 Telephone [facility] [address] [place] [phone] ErnestoAugust Surgery Scheduling 10/30/2024 2:00 PM [facility] [facility] LEAD PSYCHOLOGIST - 10/30/2024 11:59 PM MENTAL HEALTH UNIT LEAD PSYCHOLOGIST Hospital Encounter [facility] [address] [place] [address] Mauro Eugene MD Discharge Disposition: Home or Self Care 10/30/2024 12:30 PM MENTAL HEALTH UNIT LEAD PSYCHOLOGIST Office Visit [facility] [address] [facility], [place] [address] Mauro Eugene MD Tongue cancer (Primary Dx); Dysphagia, unspecified type 10/30/2024 10:52 AM MENTAL HEALTH UNIT LEAD PSYCHOLOGIST - 10/30/2024 1:59 PM MENTAL HEALTH UNIT LEAD PSYCHOLOGIST Hospital Encounter [facility] [address] [place] [address] Mauro Eugene MD Discharge Disposition: Home or Self Care 10/30/2024 Travel from Last 3 Months Immunizations Immunization Administration Dates Next Due Covid Pfizer primary monoval ent 12+ yr 0.3mL Purple cap 06/16/2021,11/15/2020,10/25/2020 TDAP (7yrs+) 02/29/2024 Social History Tobacco Use Types Packs/Day Years Used Date Smoking Tobacco: Never Smokeless Tobacco: Never Tobacco Cessation:Counseling Given: Not Answered Alcohol Use Standard Drinks/Week Comments Not Currently 0 (1 standard drink = 0.6 oz pur e alcohol) Sex and Gender Information Value Date Recorded Sex Assigned at Not on file Legal Sex Male 5:54 AM M[facility]AL HE[facility] UNIT LEAD PSYCHOLOGIST Gender Identity Not on file Sexual Orientation Not on file Last Filed Vital Signs Vital Sign Reading Time Taken Comments Blood Pressure 105/72 11/12/2024 9:45 AM CDT Pulse 73 11/12/2024 9:55 AM CDT Temperature 35.9 C (96.6 F) 11/12/2024 9:21 AM CDT Respiratory Rate 12 11/12/2024 9:55 AM CDT Oxygen Saturation 91% 11/12/2024 9:55 AM CDT Inhaled Oxygen Concentration - - Weight 111.1 kg (245 lb) 11/12/2024 6:07 AM CDT Height 180.3 cm (5' 11) 11/12/2024 6:07 AM CDT Body Mass Index 34.17 11/12/2024 6:07 AM CDT Plan of Treatment Health Maintenance Due Date Last Done Comments COLOGUARD (AGES 45-75) - COLON CA SCREENING 1967 COLON MONITORING 1967 COLONOSCOPY - COLON CA SCREENING 1967 CT COLONOGRAPHY - COLON CA SCREENING 1967 Colorectal Cancer Screening 1967 FIT - COLON CA SCREENING 1967 FLEX SIG - COLON CA SCREENING 1967 HIV SCREENING 1982 HEPATITIS C SCREENING 02/12/1985 HEPATITIS B VACCINE (1 of 3 - 19+ 3-dose series) 1986 PNEUMOCOCCAL VACCINE 50+ (1 of 1 - PCV) 2017 ZOSTER VACCINE (1 of 2) 2017 COVID-19 VACCINE (4 - season) 2024 06/16/2021, 11/15/2020, 10/25/2020 DEPRESSION SCREENING 08/28/2024 INFLUENZA VACCINE (Season Ended) 2025 SCREENING FOR DIABETES 11/13/2027 , 11/12/2024, 11/12/2024, Additional history exists DTAP/TDAP/TD VACCINES (2 - Td or Tdap) 02/28/2034 02/29/2024 HIB VACCINE Aged Out No longer eligi ble based on patient's age to complete this topic HPV VACCINE Aged Out No longer eligi ble based on patient's age to complete this topic MENINGOCOCCAL (Group B) VACCINE SHARED DECISION-MAKING Aged Out No longer eligible based on patient's age to complete this topic MENINGOCOCCAL GROUPS A/C/Y/W VACCINE Aged Out No longer eligible based on patient's age to complete this topic Procedures Procedure Name Priority Date/Time Associated Diagnosis Comments GLUCOSE - POINT OF CARE Routine 11/12/2024 8:28 AM CDT PATHOLOGY TISSUE Routine 11/12/2024 8:02 AM CDT Dysphagia, unspecified type ENDOTRACHEAL TUBE NOTE Routine 11/12/2024 7:43 AM CDT ME ESOPHAGOSCP RIG TRNSO INJECT 11/12/2024 6:55 AM CDT Dysphagia, unspecified type Special Needs Full set of Ortiz esophageal bougies 11/07 ME LARYNGOSCOPY,DIRECT ,DIAGNOSTIC 11/12/2024 6:55 AM CDT Dysphagia, unspecified type Special Needs Full set of Ortiz esophageal bougies 11/07 GLUCOSE - POINT OF CARE Routine 11/12/2024 6:07 AM CDT BASIC METABOLIC PANEL (CALCIUM TOTAL) STAT 11/12/2024 6:03 AM CDT Tongue cancer ME LARYNGOSCOPY,FLEX FIBER,DIAGNOSTIC Routine 10/30/2024 1:26 PM M[facility] UNIT LEAD PSYCHOLOGIST Dysphagia, unspecified type FL ESOPHAGRAM Routine 10/30/2024 12:11 PM MENTAL HEALTH UNIT LEAD PSYCHOLOGIST Dysphagia, unspecified type from Last 3 Months Results * (ABNORMAL) GLUCOSE - POINT OF CARE (11/12/2024 8:28 AM CDT) Only the most recent of2 resultswithin the time period is included. Glucose WB/POC 151(H) 70 - 99 mg/dL 11/12/2024 12:18 PM CDT [facility] Specimen Type Cap Fingerstick 2024 12:[address] [facility] Blood BLOOD SPECIMEN / Unknown 11/12/2024 8:28 AM CDT 11/12/2024 12:18 PM CDT us Mauro Eugene MD LAB - POINT OF CARE ORDERABLE S Final Result [facility] [address] [place] [phone], [facility] [phone] * PATHOLOGY TISSUE (11/12/2024 8:02 AM CDT) Case Report Surgical Pathology Report Case: [id number] Authorizing Provider: Mauro Eugene MD Collected: 11/12/2024 08:02 AM Ordering Location: [facility] Received: 11/12/2024 09:46 AM Pathologist: Jc Salmeron MD Specimen: Tonsil Biopsy, Right tonsil biopsy 11/13/2024 8:01 AM CDT [facility] Final Diagnosis Right palatine tonsil, biopsy: - Unremarkable squamous mucosa and mucosal-associated lymphoid tissue. - Negative for dysplasia or malignancy. 11/13/2024 8:01 AM [facility] at 0800 CDT Microscopic Description and Comment Microscopic examination is performed and supports the final diagnosis. 11/13/2024 8:01 AM [facility] Clinical History History of tongue cancer, recent history of dysphagia 11/13/2024 8:01 AM [facility] Gross Description The requisition and specimen(s) are identified with the patient's name Erlin Sifuentes. Received in formalin, labeled specimen A, are multiple fragments of matos tissue 0.5 x 0.5 x 0.5 cm in aggregate. Submitted in toto in a single cassette labeled A1. RB 11/13/2024 8:01 AM [facility] Pathologist Location at [facility] 11/13/2024 8:01 AM T [facility] Disclaimer The performance characteristics of all immunohistochemical and indirect immunofluorescence stains (if any) cited in this report were determined by the Histopathology Laboratory of [facility]. Some of these tests were developed by our own laboratory and have not been cleared or approved by the US Food and Drug Administration. The FDA does not require this test to go through premarket FDA review. These tests are used for clinical purposes. They should not be regarded as investigational or for research. This laboratory is certified under the Clinical Laboratory Improvement Amendments (CLIA) as qualified to perform high complexity clinical laboratory testing. This case has been personally reviewed and interpreted by the attending (teaching) pathologist. 11/13/2024 8:01 AM [facility] Embedded Images 11/13/2024 8:01 AM T [facility] Biopsy, NOS BIOPSY OF TONSIL / Unknown 11/12/2024 8:02 AM CDT 11/12/2024 9:46 AM CDT Comment:Pre-op diagnosis: Dysphagia, unspecified type Mauro Eugene MD LAB - PATHOLOGY/CYTOLOGY KIA SANCHEZ Final Result [facility] [place] [address], [facility] [phone] * ETT LINE PERFORMABLE (11/12/2024 7:43 AM CDT) Narrative Mike Hopkins DO - 11/12/2024 7:43 AM CDT Mike Hopkins DO 11/12/2024 7:44 AM Endotracheal Tube Placement: Patient Location: OR. Intubation Event Date/Time: 11/12/2024 7:34 AM Procedure: intubation ([id number]) Procedure Section: Sedation: under general anesthesia. Indications for Airway Management: anesthesia Procedure pretreatments used? No Induction: standard IV Patient Position: sniffing Mask Ventilation: easy. Blade Type: Gerry Blade Size: 4 Laryngoscopy View: grade 1 (full cords) Intubation Adjuncts: stylet Tube: endotracheal tube Placement: oral Tube type: cuff - inflated Tube Size (MM): 6 Depth of Insertion (CM): 24 Measured From: teeth Cuff Inflated With: air Number of Attempts: 1. Placement Verified By: direct visualization, bilateral breath sounds, chest auscultation and CO2 monitor Tube secured with: adhesive tape. Dentition unchanged? Yes Difficult Airway? No. Procedure Start Time: 11/12/2024 7:34 AM. Procedure End Time: 11/12/2024 7:34 AM. Procedure Total Time: 0 minutes. Staff Section Anesthesia Provider: Mike Hopkins DO, Performed the procedure Provider #1: Reagan Vann MD. Reagan Vann MD GENERAL ANESTHESIA ORDERABLES F inal Result * (ABNORMAL) BASIC METABOLIC PANEL (CALCIUM TOTAL) (11/12/2024 6:03 AM CDT) BUN 13 7 - 26 mg/dL 11/12/2024 6:36 AM T [facility] Creatinine 0.64(L) 0.71 - 1.16 mg/dL 11/12/2024 6:36 AM CDT [facility] Sodium 136 136 - 145 mmol/L 11/12/2024 6:36 AM CDT [facility] Potassium 3.6 3.5 - 4.5 mmol/L 11/12/2024 6:36 AM T [facility] Chloride 103 98 - 107 mmol/L 11/12/2024 6:[address] [facility] CO2 24 22 - 29 mmol/L 11/12/2024 6:36 AM [facility] Glucose 163(H) 70 - 99 mg/dL 11/12/2024 6:36 AM [facility] Calcium 9.2 8.4 - 10.2 mg/dL 11/12/2024 6:36 AM [facility] Anion Gap 9 6 - 16 11/12/2024 6:36 AM [facility] BUN/Creatinine Ratio 20 7 - 23 11/12/2024 6:36 AM [facility] Osmolality Calculated 286 275 - 295 mOsm/kg 11/12/2024 6:36 AM [facility] eGFR by CKD-EPI >90 >=90 mL/min/1.7 3 m2 11/12/2024 6:36 AM [facility] Blood BLOOD SPECIMEN / Unknown Line Draw / Unknown 11/12/2024 6:03 AM CDT 11/12/2024 6:06 AM [facility] us Mauro Eugene MD LAB - CHEMISTRY ORDERABLES Fi nal Result Performing Organization Address City/State/[facility] Co de Phone Number [facility] [address] [place] [address], [facility] [phone] * ME LARYNGOSCOPY,FLEX FIBER,DIAGNOSTIC (10/30/2024 1:26 PM MENTAL [facility]ALTH UNIT LEAD PSYCHOLOGIST) Narrative Mauro Eugene MD - 10/30/2024 1:26 PM MENTAL HEALTH UNIT LEAD PSYCHOLOGIST Mauro Eugene MD 10/30/2024 1:26 PM Procedure Note Endoscopy Type: Laryngoscopy Endoscope: 4mm flexible nasopharyngoscopy Anesthesia: topical lidocaine Procedure Details: The patient was sitting upright in a chair with the head in a slightly anterior sniffing position. The endoscope was passed through the nasal cavity with the tongue retracted anteriorly. The tip of the endoscope was positioned in the oropharynx which allowed a complete view of the base of tongue, vallecula, pyriform recesses, epiglottis, bilateral true and false vocal folds, the interarytenoid and post cricoid region, and the immediate subglottis. Findings: True vocal folds mobile no hypopharyngeal or oropharyngeal masses seen. Condition: Stable. Patient tolerated procedure well. Complications: None Estimated blood loss: None us Mauro Eugene MD PROCEDURE/MINOR SURGICAL ORDE LAURA Final Result * FL Esophagram (10/30/2024 12:11 PM MENTAL HEALTH UNIT LEAD PSYCHOLOGIST) Anatomical Region Laterality Modality Chest Digital Radiogra phy 10/30/2024 3:04 PM MENTAL HEALTH UNIT LEAD PSYCHOLOGIST Impressions 10/30/2024 3:19 PM MENTAL HEALTH UNIT LEAD PSYCHOLOGIST IMPRESSION: Mild stricture of the distal esophagus. > Interpreting Provider: Caroline Rain MD on 10/30/2024 3:19 PM Narrative 10/30/2024 3:19 PM MENTAL HEALTH UNIT LEAD PSYCHOLOGIST PROCEDURE: FL ESOPHAGRAM DATE/TIME OF EXAM: 10/30/2024 12:15 PM CLINICAL INFORMATION: None relevant/not provided if blank. 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 Left neck dissection 10/11/2021 with negative nodes COMPARISON: None. TECHNIQUE: Single and double contrast technique with fluoroscopic imaging. FLUOROSCOPY DOSE: 58.8 mGy Reference air kerma (ka,r). FINDINGS: Swallowing is normal. There is no aspiration. Mild pooling is seen in the vallecula and piriform sinuses. There is mild narrowing of the distal esophagus. The patient swallowed a 13 mm barium tablet which lodged at this level and did not pass during 4 minutes of intermittent observation and ingestion of 2 cups of water. No esophageal ulcer or mass is evident. Small 5 mm diverticulum is seen at the right side of the cervical esophagus; mild deformity of the cervical esophagus is seen at this level without obstruction to the barium pill. Esophageal motility is normal. There is no gastroesophageal reflux with or without provocative maneuvers. Procedure Note Caroline Rain MD - 10/30/2024 PROCEDURE: FL ESOPHAGRAM DATE/TIME OF EXAM: 10/30/2024 12:15 PM CLINICAL INFORMATION: None relevant/not provided if blank. 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 Left neck dissection 10/11/2021 with negative nodes COMPARISON: None. TECHNIQUE: Single and double contrast technique with fluoroscopic imaging. FLUOROSCOPY DOSE: 58.8 mGy Reference air kerma (ka,r). FINDINGS: Swallowing is normal. There is no aspiration. Mild pooling is seen inthe vallecula and piriform sinuses. There is mild narrowing of the distal esophagus. The patient swallowed a 13 mm barium tablet which lodged atthis level and did not pass during 4 minutes of intermittent observation and ingestion of 2 cups of water. No esophageal ulcer or mass is evident.Small 5 mm diverticulum is seen at the right side of the cervical esophagus;mild deformity of the cervical esophagus is seen at this level without obstruction to the barium pill. Esophageal motility is normal. There isno gastroesophageal reflux with or without provocative maneuvers. IMPRESSION: Mild stricture of the distal esophagus. > Interpreting Provider: Caroline Rain MD on 10/30/2024 3:19 PM Mauro Eugene MD FLUOROSCOPY ORDERABLES Final Result from Last 3 Months Insurance [employer] [facility] DEPT OF LABOR Advance Directives * Full Code (Latest Code Status on File) Date Activated Date Inactivated Comments 10/11/2021 6:11 PM 10/12/2021 3:34 PM * Full Code Date Activated Date Inactivated Comments 10/11/2021 10:58 AM 10/11/2021 6:10 PM Care Teams Wireworker Relationship Specialty Start Date End Date Armaan Meeks MD [address] [place] [address] PCP - General Family Medicine 09/24/21
--- OUTSIDE RECORDS SUMMARY | 2025-01-23 03:04 | XMS_ITS ---
Author Organization [facility] Address [address] [place] [address] Care Team Providers Care Pneumatic Hoist Operator Name Role Phone Armaan Meeks MD Primary Care Provider [phone] Active Problems Problem Noted Date Diagnosed Date Tongue cancer 09/24/2021 Current Treatment and Therapy Plans No current plan information found. Past Treatment and Therapy Plans No past plan information found. Lifetime Dose Tracking * Chemical Lifetime Dose Automatic Entry Manual Entr y Dose Length Product 465 mGy-cm 465 mGy-cm 0 mGy-cm
[2025-01-23 11:57] VITALS: BP 157/91; PULSE 91; RESP 20; TEMP 36.6; O2SAT 98
[2025-01-23 11:58] VITALS: BMI 33.2
[2025-01-23] MEDS: LACTATED RINGERS 1,000 ML 150 ML IV CONT (12:09)
--- NOTE | 2025-01-23 12:30 | P.PNAN_ITS ---
Anes - Initial Pre Proc Eval Procedure: Operation Date: 01/23/25 13:00 Proposed Procedures p Esophagogastroduodenoscopy - Froylan Sinha MD Date/Time: 01/23/25 12:30 Surgeon: Froylan Sinha MD Pre Op Diagnosis: Dysphagia, unspecified Patient Data Age: 59 Gender: M Height: 1.8 m Weight: 108 kg Last Vital Signs Temp 97.8 F 01/23/25 11:57 Pulse 91 01/23/25 11:57 Resp 20 01/23/25 11:57 BP 157/91 H 01/23/25 11:57 Pulse Ox 98 01/23/25 11:57 O2 Del Method Room Air 01/23/25 11:57 Allergies Allergy/AdvReac Type Severity Reaction Status Date / Time No Known Allergies Allergy Verified 01/23/25 11:55 Home Medications ?Medication ?Instructions ?Recorded ?Confirmed ?Type aspirin 81 mg tablet,delayed 81 mg PO DAILY 11/11/19 01/23/25 History release (Adult Low Dose Aspirin) amitriptyline 50 mg tablet See Rx Instructions .Route 03/29/24 01/23/25 Rx .COMPLEX #90 tabs amlodipine 10 mg tablet 10 mg PO DAILY #90 tabs 04/04/24 01/23/25 Rx pravastatin 10 mg tablet See Rx Instructions .Route 07/08/24 01/23/25 Rx .COMPLEX #90 tabs blood sugar diagnostic (OneTouch See Rx Instructions .Route 09/23/24 01/14/25 Rx Ultra Test strips) .COMPLEX #300 strips carvedilol 12.5 mg tablet 25 mg (2 x 12.5 mg) PO Q12H #360 10/01/24 01/23/25 Rx tabs clonidine HCl 0.1 mg tablet 0.1 mg PO DAILY #180 tabs 10/01/24 01/23/25 Rx metformin 500 mg tablet,extended 1,000 mg (2 x 500 mg) PO BID #360 10/01/24 01/23/25 Rx release 24 hr tabs naproxen sodium 550 mg tablet 550 mg PO DAILY #90 tabs 10/01/24 01/14/25 Rx valsartan 320 1 tablet PO DAILY #90 tabs 10/01/24 01/23/25 Rx mg-hydrochlorothiazide 25 mg tablet empagliflozin 25 mg tablet 25 mg PO DAILY #90 tabs 11/15/24 01/23/25 Rx (Jardiance) potassium chloride 20 mEq See Rx Instructions .Route 01/01/25 01/23/25 Rx tablet,extended .COMPLEX #90 tabs release(part/cryst) (Klor-Con M) tirzepatide 7.5 mg/0.5 mL 7.5 mg (0.5 mL) subcut WEEKLY #6 mL 01/03/25 01/14/25 Rx subcutaneous pen injector (Mounjaro) Patient hx anesthesia problems: none Family hx anesthesia problems: none Results Review: All pre-operative results and documents have been reviewed as part of the pre- operative evaluation. [facility] Past Medical History Medical History Laceration of finger Cellulitis of left middle finger Cellulitis of finger of left hand Abdominal pain Squamous cell cancer of tongue Essential hypertension Diabetes mellitus type 2, noninsulin dependent Cholelithiasis Diabetes type 2, controlled Adenomatous colon polyp Irritable bowel syndrome with diarrhea Fecal urgency Change in stool caliber Screening for prostate cancer History of CVA (cerebrovascular accident) Screening for colorectal cancer Degenerative lumbar disc Thoracic degenerative disc disease BPH (benign prostatic hyperplasia) Bladder wall thickening Bilateral renal masses Traumatic ecchymosis of abdominal wall Ganglion, right hand Surgical History Surgical History H/O knee surgery Hx of cervical spine surgery Family History Family History Father Hypertension Family history of diabetes mellitus in first degree relative Family history of lung cancer Family history of coronary artery disease Family history of cardiovascular disease Diabetes mellitus Mother Hypertension Family history of malignant neoplasm Sibling No problems noted. Other Cerebrovascular accident Social History Social History Smoking status: Never smoker Second hand tobacco smoke exposure: No Alcohol intake: former Substance use: never Substance use type: does not use Do You Feel Safe in your Home?: Yes Lack of Transportation: No Lack of Food: Never True Current Housing: I Have Housing Concerned About Future Housing: No Difficulty Paying Gas/Electric Bills: No Difficulty Paying for Meds: No Currently Unemployed: No Education: Trade/Vocational Certificate Difficulty w/ Childcare or Family Care: No Living arrangements: with family Occupation/Education: occupation 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 Informed Consent: The patient's anesthetic plan and its attendant risks and benefits were discussed with the patient/family/POA. Questions were solicited and answers provided to the satisfaction of the patient/family/POA.
--- NOTE | 2025-01-23 12:32 | PM.HPGS ---
History of Present Illness History of Present Illness Consent: Risks, benefits, and alternatives have been discussed and questions answered. Patient agrees to proceed with procedure. Chief complaint: Dysphagia, unspecified Narrative: Erlin Sifuentes Jr. is a 59 year old male here for first EGD, he has seen ENT, c/o difficulty swallowing at throat level Review of Systems Review of Systems: All systems reviewed & are unremarkable except as noted in HPI and below PMFSH Past Medical History Medical History Laceration of finger Cellulitis of left middle finger Cellulitis of finger of left hand Abdominal pain Squamous cell cancer of tongue Essential hypertension Diabetes mellitus type 2, noninsulin dependent Cholelithiasis Diabetes type 2, controlled Adenomatous colon polyp Irritable bowel syndrome with diarrhea Fecal urgency Change in stool caliber Screening for prostate cancer History of CVA (cerebrovascular accident) Screening for colorectal cancer Degenerative lumbar disc Thoracic degenerative disc disease BPH (benign prostatic hyperplasia) Bladder wall thickening Bilateral renal masses Traumatic ecchymosis of abdominal wall Ganglion, right hand Surgical History Surgical History H/O knee surgery Hx of cervical spine surgery Family History Family History Father Hypertension Family history of diabetes mellitus in first degree relative Family history of lung cancer Family history of coronary artery disease Family history of cardiovascular disease Diabetes mellitus Mother Hypertension Family history of malignant neoplasm Sibling No problems noted. Other Cerebrovascular accident Social History Social History Smoking status: Never smoker Second hand tobacco smoke exposure: No Alcohol intake: former Substance use: never Substance use type: does not use Do You Feel Safe in your Home?: Yes Lack of Transportation: No Lack of Food: Never True Current Housing: I Have Housing Concerned About Future Housing: No Difficulty Paying Gas/Electric Bills: No Difficulty Paying for Meds: No Currently Unemployed: No Education: Trade/Vocational Certificate Difficulty w/ Childcare or Family Care: No Living arrangements: with family Occupation/Education: occupation 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 by the patient): Male Spiritual care concerns: No Meds Home Medications and Allergies Home Medications ?Medication ?Instructions ?Recorded ?Confirmed ?Type aspirin 81 mg tablet,delayed 81 mg PO DAILY 11/11/19 01/23/25 History release (Adult Low Dose Aspirin) amitriptyline 50 mg tablet See Rx Instructions .Route 03/29/24 01/23/25 Rx .COMPLEX #90 tabs amlodipine 10 mg tablet 10 mg PO DAILY #90 tabs 04/04/24 01/23/25 Rx pravastatin 10 mg tablet See Rx Instructions .Route 07/08/24 01/23/25 Rx .COMPLEX #90 tabs blood sugar diagnostic (OneTouch See Rx Instructions .Route 09/23/24 01/14/25 Rx Ultra Test strips) .COMPLEX #300 strips carvedilol 12.5 mg tablet 25 mg (2 x 12.5 mg) PO Q12H #360 10/01/24 01/23/25 Rx tabs clonidine HCl 0.1 mg tablet 0.1 mg PO DAILY #180 tabs 10/01/24 01/23/25 Rx metformin 500 mg tablet,extended 1,000 mg (2 x 500 mg) PO BID #360 10/01/24 01/23/25 Rx release 24 hr tabs naproxen sodium 550 mg tablet 550 mg PO DAILY #90 tabs 10/01/24 01/14/25 Rx valsartan 320 1 tablet PO DAILY #90 tabs 10/01/24 01/23/25 Rx mg-hydrochlorothiazide 25 mg tablet empagliflozin 25 mg tablet 25 mg PO DAILY #90 tabs 11/15/24 01/23/25 Rx (Jardiance) potassium chloride 20 mEq See Rx Instructions .Route 01/01/25 01/23/25 Rx tablet,extended .COMPLEX #90 tabs release(part/cryst) (Klor-Con M) tirzepatide 7.5 mg/0.5 mL 7.5 mg (0.5 mL) subcut WEEKLY #6 mL 01/03/25 01/14/25 Rx subcutaneous pen injector (Belinda) Allergies Allergy/AdvReac Type Severity Reaction Status Date / Time No Known Allergies Allergy Verified 01/23/25 11:55 Vital Signs Vital Signs - 24 hr 01/23/25 11:57 Temperature 97.8 F Pulse Rate 91 Respiratory Rate 20 Blood Pressure 157/91 H Pulse Oximetry 98 Oxygen Delivery Room Air Exam Const: General: comfortable and no acute distress HENMT: Face/Nose/Sinus: Normal nares present Eyes: General: appearance normal, both eyes and all related structures Neck: Neck: no JVD Resp: Auscultation: clear to auscultation bilaterally Cardio: Rate: regular rate Rhythm: regular rhythm GI: Inspection: non-distended GI Palp: Yes Soft to palpation Skin: General skin exam: normal color Neuro: General: gait normal Speech: normal speech Extrem: General: normal to inspection Psych: Mental Status: mental status grossly normal Assessment and Plan Assessment and plan (1) Difficulty swallowing: Qualifiers: Dysphagia type: pharyngoesophageal phase Qualified Code(s): R13.14 - Dysphagia, pharyngoesophageal phase Code(s): R13.10 - Dysphagia, unspecified Status: Acute Assessment and Plan: egd with bx
--- NOTE | 2025-01-23 12:42 | S_PTH ---
PATIENT: Erlin Sifuentes Jr. LOC: [facility]#:[id number] AGE/SX: 59/M ROOM: RE01/23/[address]: Froylan Sinha MD : 1965 BED: DIS: 01/23/2025 SPEC #: [id number] RECD: 01/23/25 14:21 STATUS: DOMINIC SUMMERS #: [id number] DAVIDSON: 01/23/25 12:[address]: Froylan Sinha DEPT: [facility] Surgical RECD BY: Kristin Vu ENTERED: 01/23/25 14:21 SP TYPE: Surgical OTHR DR: Armaan Meeks MD Tissues: A - Gastric Biopsy B - Esophageal Biopsy Procedures: Hematoxylin and Eosin Stain Gross and Microscopic Level 4
[2025-01-23 12:50] VITALS: BP 134/85; PULSE 85; RESP 18; O2SAT 95
[2025-01-23 13:00] VITALS: BP 130/89; PULSE 84; RESP 25; O2SAT 96
[2025-01-23 13:10] VITALS: BP 145/96; PULSE 81; RESP 18; O2SAT 100
[2025-01-23 13:33] LABS: Glucose Point of Care 159 mg/dl (65-105)
== END 2025-01-23 13:17 | disposition home or self-care (01) ==
PROVIDERS: PCP Family Medicine; Referring Provider Family Medicine; Visit Provider Internal Medicine Gastroenterology
PROC: 0DJ08ZZ Inspection of Upper Intestinal Tract, Via Natural or Artificial Opening Endoscopic (ICD-10-PCS; CPT 43239; principal; 2025-01-23 13:00)
DX: K21.00 Gastro-esophageal reflux disease with esophagitis, without bleeding (principal); K31.84 Gastroparesis; K29.70 Gastritis, unspecified, without bleeding; I10 Essential (primary) hypertension; E11.9 Type 2 diabetes mellitus without complications; K58.0 Irritable bowel syndrome with diarrhea; R15.2 Fecal urgency; N40.0 Benign prostatic hyperplasia without lower urinary tract symptoms; M51.369 Other intervertebral disc degeneration, lumbar region without mention of lumbar back pain or lower extremity pain; M51.34 Other intervertebral disc degeneration, thoracic region; E66.9 Obesity, unspecified; Z68.33 Body mass index [BMI] 33.0-33.9, adult; Z79.82 Long term (current) use of aspirin; Z79.84 Long term (current) use of oral hypoglycemic drugs; Z79.1 Long term (current) use of non-steroidal anti-inflammatories (NSAID); Z79.85 Long-term (current) use of injectable non-insulin antidiabetic drugs; Z98.890 Other specified postprocedural states; Z98.1 Arthrodesis status; Z86.0100 Personal history of colon polyps, unspecified; Z85.810 Personal history of malignant neoplasm of tongue; Z86.79 Personal history of other diseases of the circulatory system; Z80.1 Family history of malignant neoplasm of trachea, bronchus and lung; Z82.49 Family history of ischemic heart disease and other diseases of the circulatory system
CPT/HCPCS: 43239; 82948; 88305; J2003; J2704; J7120

== ENCOUNTER 2025-05-09 02:17 | Day surgery (SDC) | payer OTHER, SELFPAY ==
[2025-04-25 10:33] VITALS: BMI 33.8
--- OUTSIDE RECORDS SUMMARY | 2025-05-09 02:20 | XMS_ITS | Clinical Summary ---
Author Organization [facility] Address [address] [place] [address] Care Team Providers Care Vehicle Glass Technician Name Role Phone Armaan Meeks MD Primary Care Provider Source Comments [facility],non-owned Affiliates and Associated Physician Practices is amultiple site organization consisting of ambulatory clinics and hospital sitesin [place], [place], [place] and [place]. This disclosure is being madepursuant to the Care Everywhere program and may not contain all information available regarding this patient. 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 Gender Identity Not on file Sexual Orientation [...] 2017 ZOSTER VACCINE (1 of 2) 2017 DEPRESSION SCREENING 08/28/2024 COVID-19 VACCINE ( - season) 2025 06/16/2021, 11/15/2020, 10/25/2020 INFLUENZA VACCINE (#1) 2025 SCREENING FOR DIABETES 11/13/2027 , 11/12/2024, [...] OF CARE Routine 11/12/2024 6:07 AM CDT from Last 3 Months or Most Recently Relevant to Health Maintenance Results * (ABNORMAL) GLUCOSE - POINT OF CARE (11/12/2024 6:07 AM CDT) Glucose WB/POC 152(H) 70 - 99 mg/dL 11/12/2024 6:08 AM CDT [facility] Specimen Type Venous 11/12/2024 6:08 AM CDT [facility] Blood BLOOD SPECIMEN / Unknown 11/12/2024 6:07 AM CDT 11/12/2024 6:08 AM CDT us Mauro Eugene MD LAB - POINT OF CARE ORDERABLE S Final Result [facility] [address] [place] [address], [facility] [phone] from Last 3 Months or Most Recently Relevant to Health Maintenance Insurance [employer] [address] SELF PAY NO INSURANCE Member Subscriber Plan / Payer (Ef fective for All Dates) Name:Windy Sifuentes Member ID:Not on file Relation to Subscriber:Not on file Name:WINDY SIFUENTES Subscriber ID:Not on file (Home) Address: [address] [place] [address] Payer ID:Not on file Group ID:Not on file Type:Self Pay Address: [place], [place] [facility] Advance Directives * Full Code (Latest Code Status on File) Date Activated Date Inactivated Comments 10/11/2021 6:11 PM 10/12/2021 3:34 PM * Full Code Date Activated Date Inactivated Comments 10/11/2021 10:58 AM 10/11/2021 6:10 PM Care Teams Vehicle Glass Technician Relationship Specialty Start Date End Date Armaan Meeks MD [address] [place] [address] PCP - General Family Medicine 09/24/21
--- OUTSIDE RECORDS SUMMARY | 2025-05-09 02:20 | XMS_ITS | Clinical Summary ---
Author Organization [facility] Address [facility] [place] [address] Care Team Providers Care Metal Pourer Name Role Phone Unavailable Primary Care Provider Unavailabl e Social History Tobacco Use Types Packs/Day Years Used Date Smoking Tobacco: Never Assessed Sex and Gender Information Value Date Recorded Sex Assigned at Not on file Legal Sex Male 7:29 PM CDT Gender Identity Not on file Sexual Orientation Not on file Plan of Treatment Health Maintenance Due Date Last Done Comments Colorectal Cancer Screening Colonoscopy (10 Years) 1967 Annual Physical 1970 Hepatitis C 1985 DTaP, Tdap and Td Vaccines ( 1 - Tdap) 1986 Hepatitis B Vaccines (1 of 3 - 19+ 3-dose series) 1986 Pneumococcal Vaccine: 50+ Ye ars (1 of 1 - PCV) 2017 Zoster Vaccines (1 of 2) 2017 COVID-19 Vaccine (2023-2 5 season) 2025 Meningococcal B Vaccine Aged Out No l onger eligible based on patient's age to complete this topic Meningococcal Vaccine Aged Out No viri meron eligible based on patient's age to complete this topic RSV Immunizations Under 20 Months Aged Out No longer eligible based on patient's age to complete this topic
--- OUTSIDE RECORDS SUMMARY | 2025-05-09 02:20 | XMS_ITS ---
Author Organization [facility] Address [address] [place] [address] Care Team Providers Care Cytometry Technologist Name Role Phone Armaan Meeks MD Primary Care Provider [phone] Active Problems Problem Noted Date Diagnosed Date Tongue cancer 09/24/2021 Current Treatment and Therapy Plans No current plan information found. Past Treatment and Therapy Plans No past plan information found. Lifetime Dose Tracking * Chemical Lifetime Dose Automatic Entry Manual Entr y Dose Length Product 465 mGy-cm 465 mGy-cm 0 mGy-cm
[2025-05-09 07:44] VITALS: BP 131/88; PULSE 88; RESP 15; TEMP 36.6; O2SAT 98; BMI 32.8
[2025-05-09] MEDS: LACTATED RINGERS 1,000 ML 150 ML IV CONT (07:52)
--- NOTE | 2025-05-09 08:42 | P.PNAN_ITS ---
Anes - Initial Pre Proc Eval Procedure: Operation Date: 05/09/25 09:00 Proposed Procedures p Esophagogastroduodenoscopy - Froylan Sinha MD Date/Time: 05/09/25 08:42 Surgeon: Froylan Sinha MD Pre Op Diagnosis: Personal history of other diseases of the digestiv Patient Data Age: 60 Gender: M Height: 1.8 m Weight: 106.7 kg Last Vital Signs Temp 36.6 C 05/09/25 07:44 Pulse 88 05/09/25 07:44 Resp 15 05/09/25 07:44 BP 131/88 05/09/25 07:44 Pulse Ox 98 05/09/25 07:44 O2 Del Method Room Air 05/09/25 07:44 Allergies Allergy/AdvReac Type Severity Reaction Status Date / Time No Known Allergies Allergy Verified 05/09/25 07:42 Home Medications ?Medication ?Instructions ?Recorded ?Confirmed ?Type aspirin 81 mg tablet,delayed 81 mg PO DAILY 11/11/19 0 05/09/25 History release (Adult Low Dose Aspirin) amlodipine 10 mg tablet 10 mg PO DAILY #90 tabs 04/2005/09/25 Rx blood sugar diagnostic (OneTouch See Rx Instructions . Route 09/23/24 05/02/25 Rx Ultra Test strips) .COMPLEX #300 strips clonidine HCl 0.1 mg tablet 0.1 mg PO DAILY #180 tabs 10/01/24 05/09/25 Rx valsartan 320 1 tablet PO DAILY #90 tabs 0 10/01/24 05/09/25 Rx mg-hydrochlorothiazide 25 mg tablet potassium chloride 20 mEq See Rx Instructions .Route 0 01/01/25 05/09/25 Rx tablet,extended .COMPLEX #90 tabs release(part/cryst) (Klor-Con M) tirzepatide 7.5 mg/0.5 mL 7.5 mg (0.5 mL) subcut WEEKL Y #6 mL 01/03/25 05/09/25 Rx subcutaneous pen injector (Mounjaro) omeprazole 40 mg capsule,delayed 40 mg PO DAILY #30 ca ps 01/23/25 05/09/25 Rx release amitriptyline 50 mg tablet See Rx Instructions .Route 03/24/25 05/09/25 Rx .COMPLEX #90 tabs carvedilol 12.5 mg tablet 25 mg (2 x 12.5 mg) PO Q12H #360 03/25/25 05/09/25 Rx tabs empagliflozin 25 mg tablet 25 mg PO DAILY #90 tabs 05/09/25 Rx (Jardiance) metformin 500 mg tablet,extended 1,000 mg (2 x 500 mg) PO BID #360 03/25/25 05/09/25 Rx release 24 hr tabs pravastatin 10 mg tablet See Rx Instructions .Route 0 04/02/25 05/09/25 Rx .COMPLEX #90 tabs Laboratory Tests 05/09/25 07:39 POC Capillary Glucose 142 H mg/dl (65-105) Patient hx anesthesia problems: none Family hx anesthesia problems: none Results Review: All pre-operative results and documents have been reviewed as part of the pre- operative evaluation. [facility] Past Medical History Medical History Localized swelling, mass and lump, lower limb Laceration of finger Cellulitis of left middle finger Cellulitis of finger of left hand Abdominal pain Squamous cell cancer of tongue Essential hypertension Diabetes mellitus type 2, noninsulin dependent Cholelithiasis Diabetes type 2, controlled Adenomatous colon polyp Irritable bowel syndrome with diarrhea Fecal urgency Change in stool caliber Screening for prostate cancer History of CVA (cerebrovascular accident) Screening for colorectal cancer Degenerative lumbar disc Thoracic degenerative disc disease BPH (benign prostatic hyperplasia) Bladder wall thickening Bilateral renal masses Traumatic ecchymosis of abdominal wall Ganglion, right hand Surgical History Surgical History H/O knee surgery Hx of cervical spine surgery Family History Family History Father Hypertension Family history of diabetes mellitus in first degree relative Family history of lung cancer Family history of coronary artery disease Family history of cardiovascular disease Diabetes mellitus Mother Hypertension Family history of malignant neoplasm Sibling No problems noted. Other Cerebrovascular accident Social History Social History Smoking status: Never smoker Second hand tobacco smoke exposure: No Alcohol intake: former Substance use: never Substance use type: does not use Do You Feel Safe in your Home?: Yes Lack of Transportation: No Lack of Food: Never True Current Housing: I Have Housing Concerned About Future Housing: No Difficulty Paying Gas/Electric Bills: No Difficulty Paying for Meds: No Currently Unemployed: No Education: Trade/Vocational Certificate Difficulty w/ Childcare or Family Care: No Living arrangements: with family Occupation/Education: occupation 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 Informed Consent: The patient's anesthetic plan and its attendant risks and benefits were discussed with the patient/family/POA. Questions were solicited and answers provided to the satisfaction of the patient/family/POA.
--- NOTE | 2025-05-09 08:45 | PM.HPGS ---
History of Present Illness History of Present Illness Consent: Risks, benefits, and alternatives have been discussed and questions answered. Patient agrees to proceed with procedure. Chief complaint: Personal history of other diseases of the digestiv Narrative: Erlin Sifuentes Jr. is a 60 year old male with erosive esophagitis 12/2024, now feeling better with med Review of Systems Review of Systems: All systems reviewed & are unremarkable except as noted in HPI and below PMFSH Past Medical History Medical History (Updated 05/09/25 @ 08:46 by Froylan Sinha MD) Erosive esophagitis Localized swelling, mass and lump, lower limb Laceration of finger Cellulitis of left middle finger Cellulitis of finger of left hand Abdominal pain Squamous cell cancer of tongue Essential hypertension Diabetes mellitus type 2, noninsulin dependent Cholelithiasis Diabetes type 2, controlled Adenomatous colon polyp Irritable bowel syndrome with diarrhea Fecal urgency Change in stool caliber Screening for prostate cancer History of CVA (cerebrovascular accident) Screening for colorectal cancer Degenerative lumbar disc Thoracic degenerative disc disease BPH (benign prostatic hyperplasia) Bladder wall thickening Bilateral renal masses Traumatic ecchymosis of abdominal wall Ganglion, right hand Surgical History Surgical History H/O knee surgery Hx of cervical spine surgery Family History Family History Father Hypertension Family history of diabetes mellitus in first degree relative Family history of lung cancer Family history of coronary artery disease Family history of cardiovascular disease Diabetes mellitus Mother Hypertension Family history of malignant neoplasm Sibling No problems noted. Other Cerebrovascular accident Social History Social History Smoking status: Never smoker Second hand tobacco smoke exposure: No Alcohol intake: former Substance use: never Substance use type: does not use Do You Feel Safe in your Home?: Yes Lack of Transportation: No Lack of Food: Never True Current Housing: I Have Housing Concerned About Future Housing: No Difficulty Paying Gas/Electric Bills: No Difficulty Paying for Meds: No Currently Unemployed: No Education: Trade/Vocational Certificate Difficulty w/ Childcare or Family Care: No Living arrangements: with family Occupation/Education: occupation 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 by the patient): Male Spiritual care concerns: No Meds Home Medications and Allergies Home Medications ?Medication ?Instructions ?Recorded ?Confirmed ?Type aspirin 81 mg tablet,delayed 81 mg PO DAILY 11/11/19 05/09/25 History release (Adult Low Dose Aspirin) amlodipine 10 mg tablet 10 mg PO DAILY #90 tabs 04/04/24 05/09/25 Rx blood sugar diagnostic (OneTouch See Rx Instructions .Route 09/23/24 05/02/25 Rx Ultra Test strips) .COMPLEX #300 strips clonidine HCl 0.1 mg tablet 0.1 mg PO DAILY #180 tabs 10/01/24 05/09/25 Rx valsartan 320 1 tablet PO DAILY #90 tabs 10/01/24 05/09/25 Rx mg-hydrochlorothiazide 25 mg tablet potassium chloride 20 mEq See Rx Instructions .Route 01/01/25 05/09/25 Rx tablet,extended .COMPLEX #90 tabs release(part/cryst) (Klor-Con M) tirzepatide 7.5 mg/0.5 mL 7.5 mg (0.5 mL) subcut WEEKLY #6 mL 01/03/25 05/09/25 Rx subcutaneous pen injector (Belinda) omeprazole 40 mg capsule,delayed 40 mg PO DAILY #30 caps 01/23/25 05/09/25 Rx release amitriptyline 50 mg tablet See Rx Instructions .Route 03/24/25 05/09/25 Rx .COMPLEX #90 tabs carvedilol 12.5 mg tablet 25 mg (2 x 12.5 mg) PO Q12H #360 03/25/25 05/09/25 Rx tabs empagliflozin 25 mg tablet 25 mg PO DAILY #90 tabs 03/25/25 05/09/25 Rx (Jardiance) metformin 500 mg tablet,extended 1,000 mg (2 x 500 mg) PO BID #360 03/25/25 05/09/25 Rx release 24 hr tabs pravastatin 10 mg tablet See Rx Instructions .Route 04/02/25 05/09/25 Rx .COMPLEX #90 tabs Allergies Allergy/AdvReac Type Severity Reaction Status Date / Time No Known Allergies Allergy Verified 05/09/25 07:42 Vital Signs Vital Signs - 24 hr 05/09/25 07:44 Temperature 97.9 F Pulse Rate 88 Respiratory Rate 15 Blood Pressure 131/88 Pulse Oximetry 98 Oxygen Delivery Room Air Exam Const: General: comfortable and no acute distress HENMT: Face/Nose/Sinus: Normal nares present Eyes: General: appearance normal, both eyes and all related structures Neck: Neck: no JVD Resp: Auscultation: clear to auscultation bilaterally Cardio: Rate: regular rate Rhythm: regular rhythm GI: Inspection: non-distended GI Palp: Yes Soft to palpation Skin: General skin exam: normal color Neuro: Speech: normal speech Extrem: General: normal to inspection Psych: Mental Status: mental status grossly normal Assessment and Plan Assessment and plan (1) Erosive esophagitis: Code(s): K22.10 - Ulcer of esophagus without bleeding Status: Acute Assessment and Plan: egd to assess healing doing better
[2025-05-09 08:50] VITALS: BP 146/96; PULSE 81; RESP 15; O2SAT 98
[2025-05-09 09:00] VITALS: BP 129/88; PULSE 80; RESP 16; O2SAT 99
[2025-05-09 09:10] VITALS: BP 117/81; PULSE 86; RESP 18; O2SAT 99
== END 2025-05-09 09:15 | disposition home or self-care (01) ==
PROVIDERS: PCP Family Medicine; Referring Provider Internal Medicine Gastroenterology; Visit Provider Internal Medicine Gastroenterology
PROC: 0DJ08ZZ Inspection of Upper Intestinal Tract, Via Natural or Artificial Opening Endoscopic (ICD-10-PCS; CPT 43235; principal; 2025-05-09 09:00)
DX: K22.10 Ulcer of esophagus without bleeding (principal); K31.84 Gastroparesis; I10 Essential (primary) hypertension; E11.9 Type 2 diabetes mellitus without complications; K58.0 Irritable bowel syndrome with diarrhea; N40.0 Benign prostatic hyperplasia without lower urinary tract symptoms; R15.2 Fecal urgency; M51.369 Other intervertebral disc degeneration, lumbar region without mention of lumbar back pain or lower extremity pain; M51.34 Other intervertebral disc degeneration, thoracic region; E66.9 Obesity, unspecified; Z68.32 Body mass index [BMI] 32.0-32.9, adult; Z79.82 Long term (current) use of aspirin; Z79.85 Long-term (current) use of injectable non-insulin antidiabetic drugs; Z79.84 Long term (current) use of oral hypoglycemic drugs; Z98.890 Other specified postprocedural states; Z98.1 Arthrodesis status; Z86.0100 Personal history of colon polyps, unspecified; Z85.810 Personal history of malignant neoplasm of tongue; Z87.19 Personal history of other diseases of the digestive system; Z86.79 Personal history of other diseases of the circulatory system; Z80.1 Family history of malignant neoplasm of trachea, bronchus and lung; Z82.49 Family history of ischemic heart disease and other diseases of the circulatory system
CPT/HCPCS: 43235; 82948; J2704; J7120

== ENCOUNTER 2025-06-23 01:54 | Day surgery (SDC) | payer OTHER, SELFPAY ==
[2025-06-13 08:25] VITALS: BMI 33.5
--- OUTSIDE RECORDS SUMMARY | 2025-06-23 01:56 | XMS_ITS | Clinical Summary ---
Author Organization [facility] Address [facility] [place] [address] Care Team Providers Care Overhead Crane Inspector Name Role Phone Unavailable Primary Care Provider [...] Vaccines (1 of 2) 2017 COVID-19 Vaccine (2024-2 6 season) 2025 Influenza Adult (#1) 2025 Hepatitis A Vaccines Aged Out No long er eligible based on patient's age to complete this topic Meningococcal B Vaccine Aged Out No l onger eligible based on patient's age to complete this topic Meningococcal Vaccine Aged Out No viri meron eligible based on patient's age to complete this topic RSV Immunizations Under 20 Months Aged Out No longer eligible based on patient's age to complete this topic
--- OUTSIDE RECORDS SUMMARY | 2025-06-23 01:56 | XMS_ITS | Clinical Summary ---
Author Organization [facility] Address [address] [place] [address] Care Team Providers Care Line Walker Name Role Phone Armaan Meeks MD Primary Care Provider [phone] Source Comments [facility],non-owned Affiliates and Associated Physician Practices is amultiple site organization consisting of ambulatory clinics and hospital sitesin [place], [place]. This disclosure is being madepursuant to the Care Everywhere program and may not contain all information available regarding this patient. 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 Gender Identity Not on file Sexual Orientation [...] - 99 mg/dL 11/12/2024 6:08 AM CDT [facility] Specimen Type Venous 11/12/2024 6:08 AM CDT [facility] Blood BLOOD SPECIMEN / Unknown 11/12/2024 6:07 AM CDT 11/12/2024 6:08 AM CDT us Mauro Eugene MD LAB - POINT OF CARE ORDERABLE S Final Result [facility] [address] [place] [address], [facility] [phone] from Last 3 Months or Most Recently Relevant to Health Maintenance Insurance [employer] [address] SELF PAY NO INSURANCE Member Subscriber Plan / Payer (Ef fective for All Dates) Name:Windy Sifuentes Member ID:Not on file Relation to Subscriber:Not on file Name:WINDY SIFUENTES Subscriber ID:Not on file (Home) Address: [address] [place] [address] Payer ID:Not on file Group ID:Not on file Type:Self Pay Address: [place], [place] [facility] OF LAB[employer] Advance Directives * Full Code (Latest Code Status on File) Date Activated Date Inactivated Comments 10/11/2021 6:11 PM 10/12/2021 3:34 PM * Full Code Date Activated Date Inactivated Comments 10/11/2021 10:58 AM 10/11/2021 6:10 PM Care Teams Line Walker Relationship Specialty Start Date End Date Armaan Meeks MD [address] [place] [address] PCP - General Family Medicine 09/24/21
--- OUTSIDE RECORDS SUMMARY | 2025-06-23 01:56 | XMS_ITS ---
Author Organization [facility] Address [address] [place] [address] Care Team Providers Care Business Unit Director Name Role Phone Armaan Meeks MD Primary Care Provider [phone] Active Problems Problem Noted Date Diagnosed Date Tongue cancer 09/24/2021 Current Treatment and Therapy Plans No current plan information found. Past Treatment and Therapy Plans No past plan information found. Lifetime Dose Tracking * Chemical Lifetime Dose Automatic Entry Manual Entr y Dose Length Product 465 mGy-cm 465 mGy-cm 0 mGy-cm
[2025-06-23 12:31] VITALS: BP 151/90; PULSE 87; RESP 20; TEMP 36.3; O2SAT 97
[2025-06-23] MEDS: LACTATED RINGERS 1,000 ML 150 ML IV CONT (12:40)
--- NOTE | 2025-06-23 13:18 | WPDANESEPPF ---
Anes - Initial Pre Proc Eval Procedure: Operation Date: 06/23/25 13:30 Proposed Procedures p Screening Colonoscopy - Froylan Sinha MD Date/Time: 06/23/25 13:18 Surgeon: Froylan Sinha MD Pre Op Diagnosis: Personal history of colon polyps, unspecified Patient Data Age: 60 Gender: M Height: 1.8 m Weight: 108.2 kg Last Vital Signs Temp 36.3 C L 06/23/25 12:31 Pulse 87 06/23/25 12:31 Resp 20 06/23/25 12:31 BP 151/90 H 06/23/25 12:31 Pulse Ox 97 06/23/25 12:31 O2 Del Method Room Air 06/23/25 12:31 Allergies Allergy/AdvReac Type Severity Reaction Status Date / Time No Known Allergies Allergy Verified 06/23/25 12:26 Home Medications ?Medication ?Instructions ?Recorded ?Confirmed ?Type aspirin 81 mg tablet,delayed 81 mg PO DAILY 11/11/19 06/23/25 History release (Adult Low Dose Aspirin) blood sugar diagnostic (OneTouch See Rx Instructions .Route 09/23/24 06/13/25 Rx Ultra Test strips) .COMPLEX #300 strips clonidine HCl 0.1 mg tablet 0.1 mg PO DAILY #180 tabs 10/01/24 06/23/25 Rx valsartan 320 1 tablet PO DAILY #90 tabs 10/01/24 06/23/25 Rx mg-hydrochlorothiazide 25 mg tablet potassium chloride 20 mEq See Rx Instructions .Route 01/01/25 06/23/25 Rx tablet,extended .COMPLEX #90 tabs release(part/cryst) (Klor-Con M) tirzepatide 7.5 mg/0.5 mL 7.5 mg (0.5 mL) subcut WEEKLY #6 mL 01/03/25 06/23/25 Rx subcutaneous pen injector (Eleazaruneugenia) omeprazole 40 mg capsule,delayed 40 mg PO DAILY #30 caps 01/23/25 06/23/25 Rx release amitriptyline 50 mg tablet See Rx Instructions .Route 03/24/25 06/23/25 Rx .COMPLEX #90 tabs carvedilol 12.5 mg tablet 25 mg (2 x 12.5 mg) PO Q12H #360 03/25/25 06/23/25 Rx tabs metformin 500 mg tablet,extended 1,000 mg (2 x 500 mg) PO BID #360 03/25/25 06/23/25 Rx release 24 hr tabs pravastatin 10 mg tablet See Rx Instructions .Route 04/02/25 06/23/25 Rx .COMPLEX #90 tabs empagliflozin 25 mg tablet 25 mg PO DAILY #90 tabs 05/18/25 06/23/25 Rx (Jardiance) amlodipine 10 mg tablet 10 mg PO DAILY #90 tabs 06/15/25 06/23/25 Rx Laboratory Tests 06/23/25 12:40 POC Capillary Glucose 143 H mg/dl (65-105) Patient hx anesthesia problems: none Family hx anesthesia problems: none Results Review: All pre-operative results and documents have been reviewed as part of the pre-operative evaluation. [facility] Past Medical History Medical History Erosive esophagitis Localized swelling, mass and lump, lower limb Laceration of finger Cellulitis of left middle finger Cellulitis of finger of left hand Abdominal pain Squamous cell cancer of tongue Essential hypertension Diabetes mellitus type 2, noninsulin dependent Cholelithiasis Diabetes type 2, controlled Adenomatous colon polyp Irritable bowel syndrome with diarrhea Fecal urgency Change in stool caliber Screening for prostate cancer History of CVA (cerebrovascular accident) Screening for colorectal cancer Degenerative lumbar disc Thoracic degenerative disc disease BPH (benign prostatic hyperplasia) Bladder wall thickening Bilateral renal masses Traumatic ecchymosis of abdominal wall Ganglion, right hand Surgical History Surgical History H/O knee surgery Hx of cervical spine surgery Family History Family History Father Hypertension Family history of diabetes mellitus in first degree relative Family history of lung cancer Family history of coronary artery disease Family history of cardiovascular disease Diabetes mellitus Mother Hypertension Family history of malignant neoplasm Sibling No problems noted. Other Cerebrovascular accident Social History Social History Smoking status: Never smoker Second hand tobacco smoke exposure: No Alcohol intake: former Substance use: never Substance use type: does not use Do You Feel Safe in your Home?: Yes Lack of Transportation: No Lack of Food: Never True Current Housing: I Have Housing Concerned About Future Housing: No Difficulty Paying Gas/Electric Bills: No Difficulty Paying for Meds: No Currently Unemployed: No Education: Trade/Vocational Certificate Difficulty w/ Childcare or Family Care: No Living arrangements: with family Occupation/Education: occupation 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 Informed Consent: The patient's anesthetic plan and its attendant risks and benefits were discussed with the patient/family/POA. Questions were solicited and answers provided to the satisfaction of the patient/family/POA.
--- NOTE | 2025-06-23 13:42 | PM.HPGS ---
History of Present Illness History of Present Illness Consent: Risks, benefits, and alternatives have been discussed and questions answered. Patient agrees to proceed with procedure. Chief complaint: Personal history of colon polyps, unspecified Narrative: Erlin Sifuentes Jr. is a 60 year old male with colon polyp in 2019 Review of Systems Review of Systems: All systems reviewed & are unremarkable except as noted in HPI and below PMFSH Past Medical History Medical History Erosive esophagitis Localized swelling, mass and lump, lower limb Laceration of finger Cellulitis of left middle finger Cellulitis of finger of left hand Abdominal pain Squamous cell cancer of tongue Essential hypertension Diabetes mellitus type 2, noninsulin dependent Cholelithiasis Diabetes type 2, controlled Adenomatous colon polyp Irritable bowel syndrome with diarrhea Fecal urgency Change in stool caliber Screening for prostate cancer History of CVA (cerebrovascular accident) Screening for colorectal cancer Degenerative lumbar disc Thoracic degenerative disc disease BPH (benign prostatic hyperplasia) Bladder wall thickening Bilateral renal masses Traumatic ecchymosis of abdominal wall Ganglion, right hand Surgical History Surgical History H/O knee surgery Hx of cervical spine surgery Family History Family History Father Hypertension Family history of diabetes mellitus in first degree relative Family history of lung cancer Family history of coronary artery disease Family history of cardiovascular disease Diabetes mellitus Mother Hypertension Family history of malignant neoplasm Sibling No problems noted. Other Cerebrovascular accident Social History Social History Smoking status: Never smoker Second hand tobacco smoke exposure: No Alcohol intake: former Substance use: never Substance use type: does not use Do You Feel Safe in your Home?: Yes Lack of Transportation: No Lack of Food: Never True Current Housing: I Have Housing Concerned About Future Housing: No Difficulty Paying Gas/Electric Bills: No Difficulty Paying for Meds: No Currently Unemployed: No Education: Trade/Vocational Certificate Difficulty w/ Childcare or Family Care: No Living arrangements: with family Occupation/Education: occupation 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 by the patient): Male Spiritual care concerns: No Meds Home Medications and Allergies Home Medications ?Medication ?Instructions ?Recorded ?Confirmed ?Type aspirin 81 mg tablet,delayed 81 mg PO DAILY 11/11/19 06/23/25 History release (Adult Low Dose Aspirin) blood sugar diagnostic (OneTouch See Rx Instructions .Route 09/23/24 06/13/25 Rx Ultra Test strips) .COMPLEX #300 strips clonidine HCl 0.1 mg tablet 0.1 mg PO DAILY #180 tabs 10/01/24 06/23/25 Rx valsartan 320 1 tablet PO DAILY #90 tabs 10/01/24 06/23/25 Rx mg-hydrochlorothiazide 25 mg tablet potassium chloride 20 mEq See Rx Instructions .Route 01/01/25 06/23/25 Rx tablet,extended .COMPLEX #90 tabs release(part/cryst) (Klor-Con M) tirzepatide 7.5 mg/0.5 mL 7.5 mg (0.5 mL) subcut WEEKLY #6 mL 01/03/25 06/23/25 Rx subcutaneous pen injector (Belinda) omeprazole 40 mg capsule,delayed 40 mg PO DAILY #30 caps 01/23/25 06/23/25 Rx release amitriptyline 50 mg tablet See Rx Instructions .Route 03/24/25 06/23/25 Rx .COMPLEX #90 tabs carvedilol 12.5 mg tablet 25 mg (2 x 12.5 mg) PO Q12H #360 03/25/25 06/23/25 Rx tabs metformin 500 mg tablet,extended 1,000 mg (2 x 500 mg) PO BID #360 03/25/25 06/23/25 Rx release 24 hr tabs pravastatin 10 mg tablet See Rx Instructions .Route 04/02/25 06/23/25 Rx .COMPLEX #90 tabs empagliflozin 25 mg tablet 25 mg PO DAILY #90 tabs 05/18/25 06/23/25 Rx (Jardiance) amlodipine 10 mg tablet 10 mg PO DAILY #90 tabs 06/15/25 06/23/25 Rx Allergies Allergy/AdvReac Type Severity Reaction Status Date / Time No Known Allergies Allergy Verified 06/23/25 12:26 Vital Signs Vital Signs - 24 hr 06/23/25 12:31 Temperature 97.4 F L Pulse Rate 87 Respiratory Rate 20 Blood Pressure 151/90 H Pulse Oximetry 97 Oxygen Delivery Room Air Exam Const: General: comfortable and no acute distress HENMT: Face/Nose/Sinus: Normal nares present Eyes: General: appearance normal, both eyes and all related structures Neck: Neck: no JVD Resp: Auscultation: clear to auscultation bilaterally Cardio: Rate: regular rate Rhythm: regular rhythm GI: Inspection: non-distended GI Palp: Yes Soft to palpation Skin: General skin exam: normal color Extrem: General: normal to inspection Psych: Mental Status: mental status grossly normal Assessment and Plan Assessment and plan (1) Adenomatous colon polyp: Code(s): D12.6 - Benign neoplasm of colon, unspecified Status: Acute Assessment and Plan: colonoscopy
--- NOTE | 2025-06-23 14:06 | S_PTH ---
PATIENT: Erlin Sifuentes Jr. LOC: [facility]#:[id number] AGE/SX: 60/M ROOM: RE06/23/[address]: Froylan Sinha MD : 1965 BED: DIS: 06/23/2025 SPEC #: [id number] RECD: 06/23/25 14:23 STATUS: DOMINIC REQ #: [id number] DAVIDSON: 06/23/25 14:[address]: Froylan Sinha DEPT: [facility] Surgical RECD BY: Kristin Vu ENTERED: 06/23/25 14:23 SP TYPE: Surgical OTHR DR: Armaan Meeks MD Tissues: A - Colon Polypectomy Procedures: Hematoxylin and Eosin Stain Gross and Microscopic Level 4
[2025-06-23 14:08] VITALS: BP 122/98; PULSE 81; RESP 20; O2SAT 98
[2025-06-23 14:18] VITALS: BP 123/77; PULSE 82; RESP 20; O2SAT 98
[2025-06-23 14:28] VITALS: BP 134/71; PULSE 82; RESP 16; O2SAT 98
== END 2025-06-23 14:37 | disposition home or self-care (01) ==
PROVIDERS: PCP Family Medicine; Referring Provider Internal Medicine Gastroenterology; Visit Provider Internal Medicine Gastroenterology
PROC: 0DJD8ZZ Inspection of Lower Intestinal Tract, Via Natural or Artificial Opening Endoscopic (ICD-10-PCS; CPT 45378; principal; 2025-06-23 13:30)
DX: Z12.11 Encounter for screening for malignant neoplasm of colon (principal); D12.0 Benign neoplasm of cecum; I10 Essential (primary) hypertension; E11.9 Type 2 diabetes mellitus without complications; K58.0 Irritable bowel syndrome with diarrhea; N40.0 Benign prostatic hyperplasia without lower urinary tract symptoms; R15.2 Fecal urgency; M51.369 Other intervertebral disc degeneration, lumbar region without mention of lumbar back pain or lower extremity pain; M51.34 Other intervertebral disc degeneration, thoracic region; E66.9 Obesity, unspecified; Z68.33 Body mass index [BMI] 33.0-33.9, adult; Z79.82 Long term (current) use of aspirin; Z79.85 Long-term (current) use of injectable non-insulin antidiabetic drugs; Z79.84 Long term (current) use of oral hypoglycemic drugs; Z98.890 Other specified postprocedural states; Z98.1 Arthrodesis status; Z85.810 Personal history of malignant neoplasm of tongue; Z86.79 Personal history of other diseases of the circulatory system; Z87.19 Personal history of other diseases of the digestive system; Z80.1 Family history of malignant neoplasm of trachea, bronchus and lung; Z82.49 Family history of ischemic heart disease and other diseases of the circulatory system
CPT/HCPCS: 45385; 82948; 88305; J2003; J2704; J7120